=== PATIENT | male | born 1965 | race Two or more races ===

== ENCOUNTER 2017-11-24 08:42 | Inpatient (IN) | payer OTHER ==
[~2017-11-24] VITALS: Ht 170.2 cm; Wt 98.0 kg
[~2017-11-24 08:42] MED LIST: ASPI81TA27 PO; ATO40T PO; LOSA100T33 PO; METF-370 PO
[2017-11-24] MEDS ORDERED: LIDOCAINE HCL 2 %PF INJ 10ML AMP IJ ONE (09:07)
[2017-11-24] MEDS ORDERED: IODIXANOL 320MG/ML 100ML BTL IV ONE (09:07)
[2017-11-24] MEDS ORDERED: ANGIOMAX 250 MG VIAL IV ONE (09:35)
[2017-11-24] MEDS ORDERED: HEPARIN SODIUM (PORCINE) 5000 UNITS/ML 1ML VIAL ONE (09:36)
[2017-11-24] MEDS ORDERED: VERAPAMIL 2.5MG/ML INJ 2ML VIAL IV ONE (09:36)
[2017-11-24] MEDS ORDERED: SODIUM CHL 0.9% 50 ML ONE (09:36)
[2017-11-24] MEDS ORDERED: MIDAZOLAM HCL 1MG/1ML-2 ML VIAL ONE (09:36)
[2017-11-24] MEDS ORDERED: fentaNYL CITRATE 100 MCG/2 ML VL ONE (09:36)
[2017-11-24] MEDS ORDERED: ONDANSETRON HCL 4 MG/2 ML VIAL IV PRN (11:00)
[2017-11-24] MEDS ORDERED: NITROGLYCERIN 0.4 MG SL TAB SL PRN (11:00)
[2017-11-24] MEDS ORDERED: SODIUM CHLORIDE 0.9% 1,000 ML IV ONE (11:00)
[2017-11-24] MEDS ORDERED: MORPHINE SULFATE 8mg/ml INJ SDV IV PRN (11:00)
[2017-11-24 12:01] LABS: Cholesterol 190 mg/dL (< 200); HDL Cholesterol 28 mg/dL (40-59); LDL Cholesterol 128 mg/dL (< 100); Triglycerides 205 mg/dL (< 150)
[2017-11-24] MEDS: HCTZ 25 MG TAB PO SCH (12:21)
[2017-11-24] MEDS ORDERED: LOSARTAN POTASSIUM 50 MG TAB PO SCH (12:30)
[2017-11-24] MEDS ORDERED: DEXTROSE (50%) 50ML SYRG IV PRN (13:30)
[2017-11-24 15:00] VITALS: BP 160/112
[2017-11-24] MEDS ORDERED: LOSARTAN POTASSIUM 50 MG TAB PO ONE ×2 (15:45→17:45)
[2017-11-24 16:28] LABS: Basophils # (auto) 0.1 uL; Basophils % (auto) 0.8 % (0.0-2.0); Eosinophils # (auto) 0.1 uL; Eosinophils % (auto) 1.5 % (0.0-7.0); Hematocrit 47.9 % (41.0-53.0); Hemoglobin 16.2 g/dL (13.5-17.5); Lymphocytes # (auto) 2.3 uL; Lymphocytes % (auto) 29.8 % (10.0-50.0); Mean Corpuscular Hemoglobin 30.7 pg (28.0-32.0); Mean Corpuscular Hgb Conc. 33.8 g/dL (32.0-36.0); Monocytes # (auto) 0.5 uL; Monocytes % (auto) 6.9 % (0.0-12.0); Neutrophils # (auto) 4.7 uL; Nucleated Red Blood Cells % 0.2 %; Platelet Count (auto) 203 10^3/uL (140-450); Red Blood Cells 5.27 10^6/uL (4.5-5.90); Red Cell Distribution Width 13.5 % (11.8-14.3); White Blood Cell 7.7 10^3/uL (4.4-10.8)
[2017-11-24 16:39] LABS: Albumin 3.6 g/dL (3.4-5.0); BUN/Creatinine Ratio 8.1; Bilirubin, Total 0.7 mg/dL (0.2-1.0); Calcium 8.6 mg/dL (8.5-10.1); Potassium 3.7 mmol/L (3.5-5.1); Total Protein 7.6 g/dL (6.4-8.2)
[2017-11-24] MEDS: InsuLIN REG 1unit/0.01ml Soln (100units/ml) SC SCH ×2 (16:51→21:27)
[2017-11-24] MEDS: ACCU-CHEK COMFORT CURVE STRIP VI SCH ×2 (16:51→21:27)
[2017-11-24 17:35] VITALS: BP 147/98
[2017-11-24] MEDS ORDERED: SODIUM CHLORIDE 0.9% 1,000 ML IV SCH (17:45)
[2017-11-24] MEDS ORDERED: PATIENTS OWN MEDICATION (Atorvastatin Calcium (Lipitor) 1 TAB) PO SCH (18:00)
[2017-11-24] MEDS: METOPROLOL TARTRATE 25 MG TAB PO SCH (21:26)
[2017-11-24] MEDS: ATORVASTATIN 20 MG TAB PO SCH (21:27)
[2017-11-24 22:00] VITALS: BP 130/87
[2017-11-24] MEDS ORDERED: ATORVASTATIN 20 MG TAB PO SCH (22:00)
[2017-11-25 05:01] VITALS: BP 145/93
[2017-11-25] MEDS: ACCU-CHEK COMFORT CURVE STRIP VI SCH ×4 (06:28→21:33)
[2017-11-25] MEDS: InsuLIN REG 1unit/0.01ml Soln (100units/ml) SC SCH ×4 (06:28→21:32)
[2017-11-25 07:20] LABS: Urine WBC None Seen /hpf (0 - 3)
[2017-11-25 07:42] LABS: Urine Bacteria NONE SEEN /hpf (None Seen); Urine Blood Negative /uL (Negative); Urine Specific Gravity 1.027 (1.001-1.035)
[2017-11-25 09:00] VITALS: BP 130/83
[2017-11-25 09:12] LABS: BUN/Creatinine Ratio 12.4; Calcium 8.5 mg/dL (8.5-10.1); Potassium 3.7 mmol/L (3.5-5.1)
[2017-11-25] MEDS ORDERED: ASPirin-EC 81 mg tab PO SCH (10:00)
[2017-11-25] MEDS ORDERED: PATIENTS OWN MEDICATION (Losartan Potassium & Hydrochlo (Losartan Potassium/Hydroc) 1 TAB) PO SCH (10:00)
[2017-11-25] MEDS: METOPROLOL TARTRATE 25 MG TAB PO SCH ×2 (12:33→21:32)
[2017-11-25] MEDS: LOSARTAN POTASSIUM 50 MG TAB PO SCH (12:34)
[2017-11-25] MEDS: ASPirin-EC 81 mg tab PO SCH (12:34)
[2017-11-25] MEDS: HCTZ 25 MG TAB PO SCH (12:35)
[2017-11-25 13:00] VITALS: BP 147/86
[2017-11-25 17:00] VITALS: BP 126/79
[2017-11-25] MEDS: ATORVASTATIN 20 MG TAB PO SCH (21:31)
[2017-11-25 22:30] VITALS: BP 131/80
[2017-11-26] VITALS (11 sets, daily range): BP systolic 108–161; BP diastolic 55–100
[2017-11-26 05:46] LABS: Basophils # (auto) 0.1 uL; Basophils % (auto) 0.6 % (0.0-2.0); Eosinophils # (auto) 0.2 uL; Hematocrit 47.4 % (41.0-53.0); Hemoglobin 16.3 g/dL (13.5-17.5); Lymphocytes # (auto) 2.7 uL; Lymphocytes % (auto) 32.3 % (10.0-50.0); Mean Corpuscular Hemoglobin 30.9 pg (28.0-32.0); Mean Corpuscular Hgb Conc. 34.5 g/dL (32.0-36.0); Mean Corpuscular Volume 89.8 fL (80.0-100.0); Monocytes # (auto) 0.5 uL; Monocytes % (auto) 6.1 % (0.0-12.0); Neutrophils # (auto) 4.9 uL; Platelet Count (auto) 211 10^3/uL (140-450); Red Blood Cells 5.28 10^6/uL (4.5-5.90); Red Cell Distribution Width 13.3 % (11.8-14.3); White Blood Cell 8.3 10^3/uL (4.4-10.8)
[2017-11-26] MEDS: ACCU-CHEK COMFORT CURVE STRIP VI SCH ×4 (06:05→23:02)
[2017-11-26] MEDS: InsuLIN REG 1unit/0.01ml Soln (100units/ml) SC SCH ×4 (06:05→23:00)
[2017-11-26 06:22] LABS: BUN/Creatinine Ratio 10.8; Calcium 9.1 mg/dL (8.5-10.1); Potassium 4.1 mmol/L (3.5-5.1)
[2017-11-26] MEDS: LOSARTAN POTASSIUM 50 MG TAB PO SCH (09:46)
[2017-11-26] MEDS: ASPirin-EC 81 mg tab PO SCH (09:47)
[2017-11-26] MEDS: METOPROLOL TARTRATE 25 MG TAB PO SCH ×2 (09:47→23:01)
[2017-11-26] MEDS ORDERED: SODIUM CHLORIDE 0.9% 1,000 ML IV SCH (10:30)
[2017-11-26 14:22] LABS: INR 1.02 (0.9-1.15); Partial Thromboplastin Time 26.6 sec (22.64-33.71); Prothrombin Time 11.1 sec (9.37-12.3)
[2017-11-26] MEDS ORDERED: ISOSORBIDE MONONITRATE 60 MG TAB PO ONE (15:45)
[2017-11-26] MEDS ORDERED: ASCORBIC ACID 500 MG TAB PO ONE (22:00)
[2017-11-26] MEDS: ATORVASTATIN 20 MG TAB PO SCH (23:00)
[2017-11-26] MEDS: hydrALAZINE HCL 10 MG TAB PO SCH (23:02)
[2017-11-27] VITALS (75 sets, daily range): BP systolic 125–156; BP diastolic 71–102
[2017-11-27] MEDS ORDERED: CHLORHEXIDINE 4% TOPICAL soln 4or8OZ TOP ONE (01:30)
[2017-11-27 04:01] LABS: Albumin 3.6 g/dL (3.4-5.0); BUN/Creatinine Ratio 12.5; Calcium 8.6 mg/dL (8.5-10.1); Potassium 3.9 mmol/L (3.5-5.1)
[2017-11-27 04:04] LABS: Bilirubin, Total 0.6 mg/dL (0.2-1.0); Total Protein 7.4 g/dL (6.4-8.2)
[2017-11-27] MEDS ORDERED: CHLORHEXIDINE 0.12% ORAL rinse 473ML MT ONE (06:00)
[2017-11-27] MEDS: InsuLIN REG 1unit/0.01ml Soln (100units/ml) SC SCH ×3 (06:20→21:49)
[2017-11-27] MEDS: ACCU-CHEK COMFORT CURVE STRIP VI SCH ×3 (06:20→21:50)
[2017-11-27] MEDS ORDERED: VANCOMYCIN 1GM/250ML 250 ML IV ONE (06:30)
[2017-11-27] MEDS ORDERED: AZTREONAM 1GM INJ 1 GM in D5W 5% 50 ML IV ONE (06:30)
[2017-11-27] MEDS: hydrALAZINE HCL 10 MG TAB PO SCH ×3 (07:08→21:43)
[2017-11-27] MEDS ORDERED: ACCU-CHEK COMFORT CURVE STRIP VI ONE (07:30)
[2017-11-27] MEDS ORDERED: PHENYLEPHRINE INJ 20 MG in SODIUM CHL 0.9% 250 ML IV ONE (07:30)
[2017-11-27] MEDS ORDERED: InsuLIN R (HUMAN) 100 UNITS in SODIUM CHL 0.9% 99 ML IV ONE (07:30)
[2017-11-27] MEDS ORDERED: TRANEXAMIC ACID 1,000 MG in SODIUM CHL 0.9% 100 ML IV ONE (07:30)
[2017-11-27] MEDS ORDERED: TRANEXAMIC ACID 1,000 mg/10ml INJ VIAL IV ONE (07:30)
[2017-11-27] MEDS ORDERED: HEPARIN 30000 UNITS in SODIUM CHLORIDE 0.9% 1000 ML IV ONE (07:30)
[2017-11-27] MEDS ORDERED: VASOPRESSIN 50 UNITS in SODIUM CHL 0.9% 247.5 ML IV ONE (07:30)
[2017-11-27] MEDS ORDERED: EPINEPHrine HCL 4 MG in D5W 5% 250 ML IV ONE (07:30)
[2017-11-27] MEDS ORDERED: NOREPINEPHRINE 16 MG/500ML KIT 500 ML IV ONE (07:30)
[2017-11-27] MEDS: ASPirin-EC 81 mg tab PO SCH (09:57)
[2017-11-27] MEDS: METOPROLOL TARTRATE 25 MG TAB PO SCH ×2 (09:58→21:43)
[2017-11-27] MEDS: ATORVASTATIN 20 MG TAB PO SCH (21:42)
[2017-11-28] VITALS (52 sets, daily range): BP systolic 92–152; BP diastolic 42–102
[2017-11-28] MEDS: hydrALAZINE HCL 10 MG TAB PO SCH ×3 (06:00→22:45)
[2017-11-28] MEDS: ACCU-CHEK COMFORT CURVE STRIP VI SCH ×4 (07:00→22:00)
[2017-11-28] MEDS: InsuLIN REG 1unit/0.01ml Soln (100units/ml) SC SCH ×4 (07:00→22:45)
[2017-11-28] MEDS: ASPirin-EC 81 mg tab PO SCH (09:41)
[2017-11-28] MEDS: METOPROLOL TARTRATE 25 MG TAB PO SCH ×2 (09:42→22:00)
[2017-11-28] MEDS ORDERED: ACCU-CHEK COMFORT CURVE STRIP VI ONE (10:30)
[2017-11-28] MEDS ORDERED: ASCORBIC ACID 500 MG TAB PO ONE ×2 (22:00)
[2017-11-28] MEDS: ATORVASTATIN 20 MG TAB PO SCH (22:00)
[2017-11-29] VITALS (40 sets, daily range): BP systolic 23–147; BP diastolic 11–110
[2017-11-29] MEDS ORDERED: CHLORHEXIDINE 4% TOPICAL soln 4or8OZ TOP ONE ×2 (02:00)
[2017-11-29] MEDS ORDERED: CHLORHEXIDINE 4% TOPICAL soln 237ML TOP ONE (03:20)
[2017-11-29 03:52] LABS: Basophils # (auto) 0.1 uL; Basophils % (auto) 0.9 % (0.0-2.0); Eosinophils # (auto) 0.2 uL; Eosinophils % (auto) 2.2 % (0.0-7.0); Hematocrit 49.2 % (41.0-53.0); Hemoglobin 16.9 g/dL (13.5-17.5); Lymphocytes # (auto) 2.4 uL; Lymphocytes % (auto) 21.5 % (10.0-50.0); Mean Corpuscular Hemoglobin 30.6 pg (28.0-32.0); Mean Corpuscular Hgb Conc. 34.3 g/dL (32.0-36.0); Mean Corpuscular Volume 89.1 fL (80.0-100.0); Monocytes # (auto) 0.8 uL; Monocytes % (auto) 7.2 % (0.0-12.0); Neutrophils # (auto) 7.8 uL; Neutrophils % (auto) 68.2 % (37.0-80.0); Platelet Count (auto) 241 10^3/uL (140-450); Red Blood Cells 5.52 10^6/uL (4.5-5.90); Red Cell Distribution Width 13.3 % (11.8-14.3); White Blood Cell 11.4 10^3/uL (4.4-10.8)
[2017-11-29 04:08] LABS: BUN/Creatinine Ratio 13.4
[2017-11-29] MEDS ORDERED: PAPAVERINE HCL 60 MG/2 ML 2ML VIAL ONE (05:40)
[2017-11-29] MEDS ORDERED: HEPARIN 1,000 UNITS/ml 1ML VIAL ONE (05:41)
[2017-11-29] MEDS ORDERED: BACITRACIN INJ 50000 UNIT VIAL ONE (05:41)
[2017-11-29] MEDS: hydrALAZINE HCL 10 MG TAB PO SCH ×3 (06:00→22:00)
[2017-11-29] MEDS ORDERED: ACCU-CHEK COMFORT CURVE STRIP VI ONE (06:00)
[2017-11-29] MEDS ORDERED: CHLORHEXIDINE 0.12% ORAL rinse 473ML MT ONE ×2 (06:00→10:30)
[2017-11-29] MEDS ORDERED: fentaNYL CITRATE 10 ML ONE (06:34)
[2017-11-29] MEDS ORDERED: MIDAZOLAM HCL 1MG/1ML-2 ML VIAL ONE (06:34)
[2017-11-29] MEDS ORDERED: ROCURONIUM 10MG/ML 10ML VIAL IV ONE ×2 (06:36→09:43)
[2017-11-29] MEDS ORDERED: NITROGLYCERIN 50MG/250ML 250 ML IV ONE (06:36)
[2017-11-29] MEDS: ACCU-CHEK COMFORT CURVE STRIP VI SCH ×10 (06:46→23:00)
[2017-11-29] MEDS: InsuLIN REG 1unit/0.01ml Soln (100units/ml) SC SCH ×2 (06:46→09:16)
[2017-11-29] MEDS ORDERED: AZTREONAM 1GM INJ 1 GM in D5W 5% 50 ML IV ONE (07:00)
[2017-11-29] MEDS ORDERED: VANCOMYCIN 1GM/250ML 250 ML IV ONE (07:00)
[2017-11-29] MEDS ORDERED: SUCCINYLCHOLINE CHLORIDE 20 MG/ML 10ML VIAL IV ONE (07:20)
[2017-11-29] MEDS ORDERED: ALBUMIN 25% 300 ML IV ONE (07:56)
[2017-11-29] MEDS ORDERED: PLASMA-LYTE A pH7.4 4,000 ML INJ ONE (07:56)
[2017-11-29] MEDS ORDERED: TRANEXAMIC ACID 1,000 MG in SODIUM CHL 0.9% 100 ML IV ONE (08:00)
[2017-11-29] MEDS ORDERED: NOREPINEPHRINE 16 MG/500ML KIT 500 ML IV ONE (08:00)
[2017-11-29] MEDS ORDERED: InsuLIN R (HUMAN) 100 UNITS in SODIUM CHL 0.9% 99 ML IV ONE (08:00)
[2017-11-29] MEDS ORDERED: TRANEXAMIC ACID 1,000 mg/10ml INJ VIAL IV ONE ×2 (08:00→18:34)
[2017-11-29] MEDS ORDERED: EPINEPHrine HCL 4 MG in D5W 5% 250 ML IV ONE (08:00)
[2017-11-29] MEDS ORDERED: PHENYLEPHRINE INJ 20 MG in SODIUM CHL 0.9% 250 ML IV ONE (08:00)
[2017-11-29] MEDS ORDERED: VASOPRESSIN 50 UNITS in SODIUM CHL 0.9% 247.5 ML IV ONE (08:00)
[2017-11-29] MEDS ORDERED: HEPARIN 30000 UNITS in SODIUM CHLORIDE 0.9% 1000 ML IV ONE (08:00)
[2017-11-29] MEDS ORDERED: PROPOFOL 10 MG/ML 20 ML IV ONE (08:07)
[2017-11-29] MEDS ORDERED: ceFAZolin 1GM VL ONE (08:08)
[2017-11-29] MEDS: METOPROLOL TARTRATE 25 MG TAB PO SCH ×2 (09:16→22:00)
[2017-11-29] MEDS: ASPirin-EC 81 mg tab PO SCH (09:16)
[2017-11-29] MEDS ORDERED: fentaNYL CITRATE 100 MCG/2 ML VL ONE ×3 (10:49→14:11)
[2017-11-29] MEDS ORDERED: PROTAMINE SULFATE 10 MG/ML 5ML VIAL IV ONE (13:37)
[2017-11-29] MEDS ORDERED: PROTAMINE SULFATE 250 MG/25 ML VL IV ONE (13:37)
[2017-11-29] MEDS ORDERED: PROPOFOL 100 ML IV ONE (14:16)
[2017-11-29] MEDS ORDERED: INSULIN DRIP 100 UNIT/100ML 100 ML IV SCH (15:02)
[2017-11-29] MEDS ORDERED: NITROGLYCERIN 50MG/250ML 250 ML IV SCH (15:03)
[2017-11-29] MEDS ORDERED: SODIUM CHLORIDE 0.9% 1,000 ML IV SCH (15:03)
[2017-11-29 15:13] LABS: Basophils # (auto) 0.1 uL; Basophils % (auto) 0.3 % (0.0-2.0); Eosinophils # (auto) 0 uL; Eosinophils % (auto) 0.3 % (0.0-7.0); Hematocrit 36.7 % (41.0-53.0); Hemoglobin 12.3 g/dL (13.5-17.5); Lymphocytes # (auto) 1.4 uL; Lymphocytes % (auto) 7.7 % (10.0-50.0); Mean Corpuscular Hemoglobin 30.3 pg (28.0-32.0); Mean Corpuscular Hgb Conc. 33.5 g/dL (32.0-36.0); Mean Corpuscular Volume 90.5 fL (80.0-100.0); Monocytes # (auto) 0.8 uL; Monocytes % (auto) 4.3 % (0.0-12.0); Neutrophils % (auto) 87.4 % (37.0-80.0); Platelet Count (auto) 119 10^3/uL (140-450); Red Blood Cells 4.06 10^6/uL (4.5-5.90); Red Cell Distribution Width 13.3 % (11.8-14.3); White Blood Cell 18.2 10^3/uL (4.4-10.8)
[2017-11-29] MEDS ORDERED: FUROSEMIDE 20 MG/2 ML VIAL IV PRN (15:15)
[2017-11-29] MEDS ORDERED: ONDANSETRON HCL 4 MG/2 ML VIAL IV PRN (15:15)
[2017-11-29] MEDS ORDERED: ALBUMIN 5% 250 ML IV PRN (15:15)
[2017-11-29] MEDS ORDERED: SODIUM BICARBONATE 8.4% INJ 50ML SYRINGE IV PRN (15:15)
[2017-11-29] MEDS ORDERED: METOCLOPRAMIDE HCL 5MG/ml INJ 2ml VIAL IV PRN (15:15)
[2017-11-29] MEDS ORDERED: AZTREONAM 1GM INJ 1 GM in D5W 5% 50 ML IV SCH (15:15)
[2017-11-29] MEDS ORDERED: ALBUMIN 25% 250 ML IV PRN (15:15)
[2017-11-29] MEDS ORDERED: DEXTROSE (50%) 50ML SYRG IV PRN (15:15)
[2017-11-29] MEDS ORDERED: MAGNESIUM SULFATE 1GM/100ML 100 ML IV PRN (15:15)
[2017-11-29] MEDS ORDERED: MORPHINE SULFATE 8mg/ml INJ SDV IV PRN ×2 (15:15)
[2017-11-29] MEDS ORDERED: AMIODARONE HCL 150 MG in D5W 5% 100 ML IV ONE (15:15)
[2017-11-29] MEDS ORDERED: VANCOMYCIN 1GM/250ML 250 ML IV SCH (15:15)
[2017-11-29] MEDS ORDERED: PROPRANOLOL HCL 1 MG/ML VIAL IV PRN (15:15)
[2017-11-29 15:25] LABS: INR 1.17 (0.9-1.15); Partial Thromboplastin Time 33.2 sec (22.64-33.71); Prothrombin Time 12.8 sec (9.37-12.3)
[2017-11-29 15:28] LABS: Albumin 3.3 g/dL (3.4-5.0); BUN/Creatinine Ratio 11.1; Calcium 7.1 mg/dL (8.5-10.1); Magnesium 3.7 mg/dL (1.6-2.6); Potassium 4.3 mmol/L (3.5-5.1)
[2017-11-29] MEDS ORDERED: AMIODARONE HCL 900 MG in DEXTROSE 500 ML IV SCH (15:30)
[2017-11-29 15:31] LABS: Bilirubin, Total 0.9 mg/dL (0.2-1.0); Total Protein 5.3 g/dL (6.4-8.2)
[2017-11-29] MEDS ORDERED: SODIUM BICARBONATE 8.4% INJ 50ML SYRINGE ONE (15:52)
[2017-11-29] MEDS ORDERED: SODIUM BICARBONATE 8.4 % INJ 50ML VIAL IV ONE (16:00)
[2017-11-29 16:01] LABS: Basophils # (auto) 0 uL; Basophils % (auto) 0.2 % (0.0-2.0); Eosinophils # (auto) 0 uL; Eosinophils % (auto) 0.1 % (0.0-7.0); Hematocrit 39.9 % (41.0-53.0); Hemoglobin 13.4 g/dL (13.5-17.5); Lymphocytes # (auto) 1.3 uL; Lymphocytes % (auto) 7.2 % (10.0-50.0); Mean Corpuscular Hemoglobin 30.3 pg (28.0-32.0); Mean Corpuscular Hgb Conc. 33.5 g/dL (32.0-36.0); Mean Corpuscular Volume 90.4 fL (80.0-100.0); Monocytes % (auto) 5.5 % (0.0-12.0); Neutrophils # (auto) 15.4 uL; Platelet Count (auto) 140 10^3/uL (140-450); Red Blood Cells 4.42 10^6/uL (4.5-5.90); Red Cell Distribution Width 13.4 % (11.8-14.3); White Blood Cell 17.7 10^3/uL (4.4-10.8)
[2017-11-29] MEDS: MORPHINE SULFATE 8mg/ml INJ SDV IV PRN (16:02)
[2017-11-29] MEDS: PROPOFOL 100 ML IV SCH (16:11)
[2017-11-29] MEDS: NOREPINEPHRINE 16 MG/500ML KIT 500 ML IV SCH (16:11)
[2017-11-29 16:20] LABS: Albumin 3.6 g/dL (3.4-5.0); BUN/Creatinine Ratio 9.2; Bilirubin, Total 1.4 mg/dL (0.2-1.0); Calcium 7.3 mg/dL (8.5-10.1); Magnesium 3.4 mg/dL (1.6-2.6); Phosphorus 2.3 mg/dL (2.5-4.90); Potassium 4.5 mmol/L (3.5-5.1); Total Protein 6.1 g/dL (6.4-8.2)
[2017-11-29 16:22] LABS: INR 1.09 (0.9-1.15); Partial Thromboplastin Time 28.8 sec (22.64-33.71); Prothrombin Time 11.9 sec (9.37-12.3)
[2017-11-29] MEDS: NICARDIPINE 25MG/250ML BAG KIT 250 ML IV SCH ×2 (16:38→20:03)
[2017-11-29] MEDS: SODIUM CHLORIDE 0.9% 500 ML IV SCH (16:41)
[2017-11-29] MEDS: DEXMEDETOMIDINE HCL 400 MCG in D5W 5% 96 ML IV SCH (16:41)
[2017-11-29] MEDS: SOD CHL 0.45% 1,000 ML IV SCH (17:03)
[2017-11-29] MEDS: CALCIUM GLUC 4.65meq/50ml D5AE 50 ML IV PRN ×2 (17:04→18:20)
[2017-11-29] MEDS: IPRATROPIUM BROM 0.5 MG/2.5ML INH SOL NEB SCH ×2 (18:07→22:10)
[2017-11-29] MEDS ORDERED: CALCIUM CHLOR(10%) 100MG/ML 10ML SYRINGE IV ONE (18:34)
[2017-11-29] MEDS ORDERED: ADENOSINE 6 MG/2 ML INJ IV ONE (18:34)
[2017-11-29 20:02] LABS: Potassium 4.3 mmol/L (3.5-5.1)
[2017-11-29 20:03] LABS: Basophils # (auto) 0 uL; Basophils % (auto) 0.1 % (0.0-2.0); Eosinophils # (auto) 0 uL; Hematocrit 36.3 % (41.0-53.0); Hemoglobin 12.1 g/dL (13.5-17.5); Lymphocytes # (auto) 0.9 uL; Lymphocytes % (auto) 7.6 % (10.0-50.0); Mean Corpuscular Hemoglobin 30.3 pg (28.0-32.0); Mean Corpuscular Hgb Conc. 33.4 g/dL (32.0-36.0); Monocytes # (auto) 0.5 uL; Monocytes % (auto) 3.8 % (0.0-12.0); Neutrophils # (auto) 10.5 uL; Neutrophils % (auto) 88.5 % (37.0-80.0); Nucleated Red Blood Cells % 0.1 %; Platelet Count (auto) 118 10^3/uL (140-450); Red Blood Cells 3.99 10^6/uL (4.5-5.90); Red Cell Distribution Width 13.4 % (11.8-14.3); White Blood Cell 11.9 10^3/uL (4.4-10.8)
[2017-11-29] MEDS: AMIODARONE HCL 900 MG in DEXTROSE 500 ML IV SCH (21:30)
[2017-11-29] MEDS: ACETAMINOPHEN 500 MG TAB PO PRN (21:35)
[2017-11-29] MEDS: ATORVASTATIN 20 MG TAB PO SCH (22:00)
[2017-11-29] MEDS: CHLORHEXIDINE 0.12% ORAL rinse 473ML MT SCH (22:08)
[2017-11-29] MEDS: ACETYLCYSTEINE 10 %(100MG/ML) SOL 4ML NEB SCH (22:11)
[2017-11-30] VITALS (83 sets, daily range): BP systolic 22–148; BP diastolic 8–89
[2017-11-30 00:14] LABS: BUN/Creatinine Ratio 12.4; Calcium 7.7 mg/dL (8.5-10.1); Potassium 4.2 mmol/L (3.5-5.1)
[2017-11-30] MEDS: CALCIUM GLUC 4.65meq/50ml D5AE 50 ML IV PRN ×4 (00:30→15:18)
[2017-11-30] MEDS: ACCU-CHEK COMFORT CURVE STRIP VI SCH ×18 (01:00→20:00)
[2017-11-30] MEDS: NICARDIPINE 25MG/250ML BAG KIT 250 ML IV SCH ×5 (01:03→21:03)
[2017-11-30] MEDS: AZTREONAM 1GM INJ 1 GM in D5W 5% 50 ML IV SCH ×3 (01:10→16:26)
[2017-11-30] MEDS: PROPOFOL 100 ML IV SCH ×2 (03:00→15:03)
[2017-11-30] MEDS: DEXMEDETOMIDINE HCL 400 MCG in D5W 5% 96 ML IV SCH ×2 (04:00→10:17)
[2017-11-30 04:44] LABS: Basophils # (auto) 0 uL; Basophils % (auto) 0.3 % (0.0-2.0); Eosinophils # (auto) 0 uL; Hematocrit 33.5 % (41.0-53.0); Hemoglobin 11.3 g/dL (13.5-17.5); Lymphocytes # (auto) 1.1 uL; Lymphocytes % (auto) 7.9 % (10.0-50.0); Mean Corpuscular Hemoglobin 30.7 pg (28.0-32.0); Mean Corpuscular Hgb Conc. 33.7 g/dL (32.0-36.0); Mean Corpuscular Volume 91.3 fL (80.0-100.0); Monocytes # (auto) 0.8 uL; Monocytes % (auto) 5.7 % (0.0-12.0); Neutrophils % (auto) 86.1 % (37.0-80.0); Platelet Count (auto) 121 10^3/uL (140-450); Red Blood Cells 3.67 10^6/uL (4.5-5.90); Red Cell Distribution Width 13.8 % (11.8-14.3)
[2017-11-30 05:09] LABS: BUN/Creatinine Ratio 11.8; Calcium 7.9 mg/dL (8.5-10.1); Magnesium 2.7 mg/dL (1.6-2.6); Phosphorus 3.3 mg/dL (2.5-4.90)
[2017-11-30] MEDS: SOD CHL 0.45% 1,000 ML IV SCH ×2 (05:30→09:25)
[2017-11-30] MEDS: POTASSIUM CHL 20MEQ/100ML 100 ML IV PRN ×7 (05:50→21:45)
[2017-11-30] MEDS: VANCOMYCIN 1GM/250ML 250 ML IV SCH ×2 (05:55→17:16)
[2017-11-30] MEDS: hydrALAZINE HCL 10 MG TAB PO SCH ×3 (06:00→22:00)
[2017-11-30] MEDS: IPRATROPIUM BROM 0.5 MG/2.5ML INH SOL NEB SCH ×4 (06:59→18:24)
[2017-11-30] MEDS: ACETYLCYSTEINE 10 %(100MG/ML) SOL 4ML NEB SCH ×3 (06:59→22:16)
[2017-11-30] MEDS: MORPHINE SULFATE 8mg/ml INJ SDV IV PRN (07:27)
[2017-11-30] MEDS: PANTOPRAZOLE 40 MG/10 ML VIAL IV SCH (09:33)
[2017-11-30] MEDS: CHLORHEXIDINE 0.12% ORAL rinse 473ML MT SCH ×2 (09:33→22:00)
[2017-11-30] MEDS ORDERED: NITROGLYCERIN 0.4MG/HR TOPICAL PATCH TD ONE (11:45)
[2017-11-30] MEDS: METOPROLOL TARTRATE 25 MG TAB PO SCH ×2 (12:04→22:30)
[2017-11-30] MEDS: ASPirin-EC 81 mg tab PO SCH (12:04)
[2017-11-30] MEDS: SODIUM FERR GLUC 62.5MG/5ML 125 MG in SODIUM CHL 0.9% 100 ML IV SCH (12:04)
[2017-11-30 14:04] LABS: Basophils # (auto) 0.1 uL; Basophils % (auto) 0.5 % (0.0-2.0); Eosinophils # (auto) 0 uL; Hematocrit 31.3 % (41.0-53.0); Hemoglobin 10.4 g/dL (13.5-17.5); Lymphocytes # (auto) 2.1 uL; Lymphocytes % (auto) 12.2 % (10.0-50.0); Mean Corpuscular Hemoglobin 30.1 pg (28.0-32.0); Mean Corpuscular Hgb Conc. 33.1 g/dL (32.0-36.0); Mean Corpuscular Volume 91.1 fL (80.0-100.0); Monocytes # (auto) 1.5 uL; Monocytes % (auto) 8.8 % (0.0-12.0); Neutrophils # (auto) 13.4 uL; Neutrophils % (auto) 78.5 % (37.0-80.0); Platelet Count (auto) 124 10^3/uL (140-450); Red Blood Cells 3.44 10^6/uL (4.5-5.90); Red Cell Distribution Width 13.5 % (11.8-14.3); White Blood Cell 17.1 10^3/uL (4.4-10.8)
[2017-11-30] MEDS: HYDROcodone-ACET 10/325MG TAB PO PRN ×2 (14:24→23:20)
[2017-11-30 14:46] LABS: Calcium 8.2 mg/dL (8.5-10.1); Magnesium 2.6 mg/dL (1.6-2.6); Phosphorus 3.4 mg/dL (2.5-4.90); Potassium 4.3 mmol/L (3.5-5.1)
[2017-11-30] MEDS: SODIUM CHLORIDE 0.9% 500 ML IV SCH (15:03)
[2017-11-30] MEDS: NOREPINEPHRINE 16 MG/500ML KIT 500 ML IV SCH (15:03)
[2017-11-30] MEDS ORDERED: DEXTROSE (50%) 50ML SYRG IV PRN (15:15)
[2017-11-30] MEDS: InsuLIN REG 1unit/0.01ml Soln (100units/ml) SC SCH ×2 (16:03→20:00)
[2017-11-30] MEDS: ACETAMINOPHEN 500 MG TAB PO PRN (21:00)
[2017-11-30] MEDS: AMIODARONE HCL 900 MG in DEXTROSE 500 ML IV SCH (21:30)
[2017-11-30] MEDS: ATORVASTATIN 20 MG TAB PO SCH (22:00)
[2017-11-30] MEDS: ZOLPIDEM TARTRATE 5 MG TAB PO PRN (22:30)
[2017-12-01] VITALS (51 sets, daily range): BP systolic 85–133; BP diastolic 45–100
[2017-12-01] MEDS: InsuLIN REG 1unit/0.01ml Soln (100units/ml) SC SCH ×7 (00:30→23:39)
[2017-12-01] MEDS: AZTREONAM 1GM INJ 1 GM in D5W 5% 50 ML IV SCH ×2 (01:00→08:03)
[2017-12-01] MEDS: IPRATROPIUM BROM 0.5 MG/2.5ML INH SOL NEB SCH ×6 (02:00→22:32)
[2017-12-01] MEDS: NICARDIPINE 25MG/250ML BAG KIT 250 ML IV SCH ×5 (02:03→22:03)
[2017-12-01] MEDS: ACCU-CHEK COMFORT CURVE STRIP VI SCH ×8 (04:30→23:38)
[2017-12-01 05:23] LABS: Basophils # (auto) 0 uL; Basophils % (auto) 0.3 % (0.0-2.0); Eosinophils # (auto) 0 uL; Eosinophils % (auto) 0.1 % (0.0-7.0); Hematocrit 30.3 % (41.0-53.0); Hemoglobin 10.3 g/dL (13.5-17.5); Lymphocytes # (auto) 2.7 uL; Lymphocytes % (auto) 17.9 % (10.0-50.0); Mean Corpuscular Hgb Conc. 33.9 g/dL (32.0-36.0); Mean Corpuscular Volume 91.5 fL (80.0-100.0); Monocytes # (auto) 1.1 uL; Monocytes % (auto) 7.3 % (0.0-12.0); Neutrophils # (auto) 11.4 uL; Neutrophils % (auto) 74.4 % (37.0-80.0); Platelet Count (auto) 126 10^3/uL (140-450); Red Blood Cells 3.31 10^6/uL (4.5-5.90); Red Cell Distribution Width 13.6 % (11.8-14.3); White Blood Cell 15.3 10^3/uL (4.4-10.8)
[2017-12-01] MEDS: VANCOMYCIN 1GM/250ML 250 ML IV SCH (05:30)
[2017-12-01 05:35] LABS: BUN/Creatinine Ratio 12.1; Magnesium 2.3 mg/dL (1.6-2.6); Potassium 3.9 mmol/L (3.5-5.1)
[2017-12-01] MEDS: POTASSIUM CHL 20MEQ/100ML 100 ML IV PRN ×2 (06:10→07:47)
[2017-12-01] MEDS: hydrALAZINE HCL 10 MG TAB PO SCH (06:15)
[2017-12-01] MEDS: ACETAMINOPHEN 500 MG TAB PO PRN (06:30)
[2017-12-01] MEDS: SOD CHL 0.45% 1,000 ML IV SCH (06:45)
[2017-12-01] MEDS: ACETYLCYSTEINE 10 %(100MG/ML) SOL 4ML NEB SCH ×3 (06:52→18:51)
[2017-12-01] MEDS ORDERED: MORPHINE SULFATE 8mg/ml INJ SDV IV PRN ×3 (08:30→10:45)
[2017-12-01] MEDS ORDERED: HYDROcodone-ACET 10/325MG TAB PO PRN (08:30)
[2017-12-01] MEDS: DEXMEDETOMIDINE HCL 400 MCG in D5W 5% 96 ML IV SCH (08:43)
[2017-12-01] MEDS: CALCIUM GLUC 4.65meq/50ml D5AE 50 ML IV PRN (09:00)
[2017-12-01] MEDS: PANTOPRAZOLE 40 MG/10 ML VIAL IV SCH (10:04)
[2017-12-01] MEDS: NITROGLYCERIN 0.4MG/HR TOPICAL PATCH TD SCH (10:05)
[2017-12-01] MEDS: FUROSEMIDE 20 MG TAB PO SCH ×2 (10:06→18:02)
[2017-12-01] MEDS: POTASSIUM CHL 20 Meq TABLET PO SCH ×3 (10:06→22:00)
[2017-12-01] MEDS: CHLORHEXIDINE 0.12% ORAL rinse 473ML MT SCH ×2 (10:07→22:00)
[2017-12-01] MEDS: ASPirin-EC 81 mg tab PO SCH (10:07)
[2017-12-01] MEDS ORDERED: hydrALAZINE HCL 20 MG/ML VL IV PRN ×2 (10:45)
[2017-12-01] MEDS ORDERED: SENNA 8.6 MG TAB PO PRN (10:45)
[2017-12-01] MEDS ORDERED: glipiZIDE 5 MG TAB PO ONE (10:45)
[2017-12-01] MEDS ORDERED: HYDROcodone-ACET 5/325MG TAB PO PRN ×2 (10:45→13:30)
[2017-12-01] MEDS ORDERED: POTASSIUM CHL 20MEQ/100ML 100 ML IV PRN (10:45)
[2017-12-01] MEDS ORDERED: SODIUM CHLORIDE 0.9% 1,000 ML IV SCH (11:00)
[2017-12-01] MEDS ORDERED: DEXTROSE (50%) 50ML SYRG IV PRN (11:00)
[2017-12-01] MEDS ORDERED: METOCLOPRAMIDE HCL 5MG/ml INJ 2ml VIAL IV ONE (11:00)
[2017-12-01] MEDS: Boost Glucose Control 8 Ounces PO SCH ×2 (12:00→18:01)
[2017-12-01] MEDS: SODIUM FERR GLUC 62.5MG/5ML 125 MG in SODIUM CHL 0.9% 100 ML IV SCH (12:05)
[2017-12-01] MEDS ORDERED: fentaNYL CITRATE 100 MCG/2 ML VL IV ONE (13:15)
[2017-12-01] MEDS ORDERED: METOPROLOL TARTRATE 25 MG TAB PO ONE (13:15)
[2017-12-01] MEDS: SODIUM CHLORIDE 0.9% 500 ML IV SCH (14:41)
[2017-12-01] MEDS: ACETAMINOPHEN IV 1000 MG/100ML (10MG/ML) IV SCH ×2 (18:02→23:30)
[2017-12-01] MEDS: POTASSIUM CHL 20 Meq TABLET PO PRN (18:56)
[2017-12-01] MEDS: HYDROcodone-ACET 10/325MG TAB PO PRN (19:49)
[2017-12-01] MEDS: AMIODARONE HCL 900 MG in DEXTROSE 500 ML IV SCH (21:30)
[2017-12-01] MEDS: DOCUSATE SOD 100 MG CAP PO SCH (22:00)
[2017-12-01] MEDS ORDERED: METOPROLOL TARTRATE 25 MG TAB PO SCH (22:00)
[2017-12-01] MEDS: ATORVASTATIN 20 MG TAB PO SCH (22:00)
[2017-12-01] MEDS: ASCORBIC ACID 500 MG TAB PO SCH (22:00)
[2017-12-01] MEDS: KETOROLAC TROMETH 30 MG/ML 1ML VIAL IV PRN (23:39)
[2017-12-01] MEDS: ZOLPIDEM TARTRATE 5 MG TAB PO PRN (23:39)
[2017-12-02] VITALS (66 sets, daily range): BP systolic 82–132; BP diastolic 36–71
[2017-12-02] MEDS: NICARDIPINE 25MG/250ML BAG KIT 250 ML IV SCH ×5 (03:03→23:03)
[2017-12-02] MEDS: InsuLIN REG 1unit/0.01ml Soln (100units/ml) SC SCH ×5 (04:00→22:09)
[2017-12-02] MEDS: HYDROcodone-ACET 10/325MG TAB PO PRN ×2 (06:00→20:01)
[2017-12-02] MEDS: ACCU-CHEK COMFORT CURVE STRIP VI SCH ×5 (06:00→22:09)
[2017-12-02] MEDS: FUROSEMIDE 20 MG TAB PO SCH (06:03)
[2017-12-02] MEDS: ACETAMINOPHEN IV 1000 MG/100ML (10MG/ML) IV SCH ×2 (06:03→12:05)
[2017-12-02] MEDS: IPRATROPIUM BROM 0.5 MG/2.5ML INH SOL NEB SCH ×5 (06:08→22:32)
[2017-12-02] MEDS: ACETYLCYSTEINE 10 %(100MG/ML) SOL 4ML NEB SCH ×3 (06:08→22:31)
[2017-12-02] MEDS: POTASSIUM CHL 20 Meq TABLET PO SCH (06:11)
[2017-12-02] MEDS ORDERED: glipiZIDE 5 MG TAB PO SCH (07:00)
[2017-12-02 07:55] LABS: Basophils # (auto) 0.1 uL; Basophils % (auto) 0.6 % (0.0-2.0); Eosinophils # (auto) 0 uL; Eosinophils % (auto) 0.4 % (0.0-7.0); Hematocrit 29.1 % (41.0-53.0); Hemoglobin 9.7 g/dL (13.5-17.5); Lymphocytes % (auto) 15.9 % (10.0-50.0); Mean Corpuscular Hemoglobin 30.6 pg (28.0-32.0); Mean Corpuscular Hgb Conc. 33.5 g/dL (32.0-36.0); Mean Corpuscular Volume 91.5 fL (80.0-100.0); Monocytes % (auto) 7.7 % (0.0-12.0); Neutrophils # (auto) 9.7 uL; Neutrophils % (auto) 75.4 % (37.0-80.0); Nucleated Red Blood Cells % 0.2 %; Platelet Count (auto) 139 10^3/uL (140-450); Red Blood Cells 3.17 10^6/uL (4.5-5.90); Red Cell Distribution Width 13.4 % (11.8-14.3); White Blood Cell 12.9 10^3/uL (4.4-10.8)
[2017-12-02 08:08] LABS: Calcium 7.8 mg/dL (8.5-10.1)
[2017-12-02 08:12] LABS: Albumin 3.1 g/dL (3.4-5.0); BUN/Creatinine Ratio 15.6; Magnesium 2.3 mg/dL (1.6-2.6)
[2017-12-02 08:14] LABS: Bilirubin, Total 1.2 mg/dL (0.2-1.0); Total Protein 6.6 g/dL (6.4-8.2)
[2017-12-02] MEDS ORDERED: METOCLOPRAMIDE HCL 5MG/ml INJ 2ml VIAL IV ONE (08:45)
[2017-12-02] MEDS ORDERED: ALBUMIN 25% 100 ML IV ONE (08:45)
[2017-12-02] MEDS ORDERED: CALCIUM GLUC 4.65meq/50ml D5AE 50 ML IV PRN (09:00)
[2017-12-02] MEDS: metFORMIN HYDROCHLORIDE 500 MG TAB PO SCH (11:11)
[2017-12-02] MEDS: Boost Glucose Control 8 Ounces PO SCH ×2 (11:11→12:00)
[2017-12-02] MEDS: ASCORBIC ACID 500 MG TAB PO SCH ×2 (11:15→22:09)
[2017-12-02] MEDS: PANTOPRAZOLE 40 MG TAB PO SCH (11:15)
[2017-12-02] MEDS ORDERED: METOPROLOL TARTRATE 25 MG TAB PO ONE ×2 (11:15→16:00)
[2017-12-02] MEDS: NITROGLYCERIN 0.4MG/HR TOPICAL PATCH TD SCH (11:15)
[2017-12-02] MEDS: POTASSIUM CHL 20 Meq TABLET PO PRN (11:15)
[2017-12-02] MEDS ORDERED: DEXTROSE (50%) 50ML SYRG IV PRN (11:15)
[2017-12-02] MEDS: DOCUSATE SOD 100 MG CAP PO SCH ×2 (11:15→22:08)
[2017-12-02] MEDS: ASPirin-EC 81 mg tab PO SCH (11:15)
[2017-12-02] MEDS ORDERED: ENOXAPARIN SOD 30 MG/0.3 ML SYRINGE SC ONE (11:15)
[2017-12-02] MEDS: SODIUM CHLORIDE 0.9% 1,000 ML IV SCH (11:16)
[2017-12-02] MEDS: CHLORHEXIDINE 0.12% ORAL rinse 473ML MT SCH ×2 (11:16→22:07)
[2017-12-02] MEDS: SODIUM FERR GLUC 62.5MG/5ML 125 MG in SODIUM CHL 0.9% 100 ML IV SCH (13:33)
[2017-12-02] MEDS: SODIUM CHLORIDE 0.9% 500 ML IV SCH (15:37)
[2017-12-02] MEDS: ALBUMIN 25% 50 ML IV SCH (16:05)
[2017-12-02] MEDS: KETOROLAC TROMETH 30 MG/ML 1ML VIAL IV PRN (16:07)
[2017-12-02 16:14] LABS: BUN/Creatinine Ratio 13.4; Calcium 8.2 mg/dL (8.5-10.1); Potassium 4.2 mmol/L (3.5-5.1)
[2017-12-02] MEDS: AMIODARONE HCL 900 MG in DEXTROSE 500 ML IV SCH (21:30)
[2017-12-02] MEDS: METOPROLOL TARTRATE 25 MG TAB PO SCH (22:08)
[2017-12-02] MEDS: ATORVASTATIN 20 MG TAB PO SCH (22:08)
[2017-12-02] MEDS: ZOLPIDEM TARTRATE 5 MG TAB PO PRN (22:10)
[2017-12-03] VITALS (57 sets, daily range): BP systolic 92–134; BP diastolic 43–77
[2017-12-03] MEDS: ALBUMIN 25% 50 ML IV SCH
[2017-12-03] MEDS: SODIUM CHLORIDE 0.9% 1,000 ML IV SCH (00:20)
[2017-12-03] MEDS: HYDROcodone-ACET 10/325MG TAB PO PRN ×3 (01:55→13:24)
[2017-12-03] MEDS: NICARDIPINE 25MG/250ML BAG KIT 250 ML IV SCH ×4 (04:03→19:03)
[2017-12-03 05:21] LABS: Basophils # (auto) 0.1 uL; Basophils % (auto) 0.9 % (0.0-2.0); Eosinophils # (auto) 0.2 uL; Eosinophils % (auto) 1.6 % (0.0-7.0); Hematocrit 25.4 % (41.0-53.0); Hemoglobin 8.5 g/dL (13.5-17.5); Lymphocytes # (auto) 1.7 uL; Lymphocytes % (auto) 15.9 % (10.0-50.0); Mean Corpuscular Hemoglobin 31.2 pg (28.0-32.0); Mean Corpuscular Hgb Conc. 33.6 g/dL (32.0-36.0); Mean Corpuscular Volume 92.9 fL (80.0-100.0); Monocytes # (auto) 0.8 uL; Monocytes % (auto) 7.2 % (0.0-12.0); Neutrophils # (auto) 7.8 uL; Neutrophils % (auto) 74.4 % (37.0-80.0); Nucleated Red Blood Cells % 0.4 %; Platelet Count (auto) 165 10^3/uL (140-450); Red Blood Cells 2.73 10^6/uL (4.5-5.90); Red Cell Distribution Width 13.4 % (11.8-14.3); White Blood Cell 10.5 10^3/uL (4.4-10.8)
[2017-12-03 05:37] LABS: Potassium 4.2 mmol/L (3.5-5.1)
[2017-12-03 05:38] LABS: Albumin 3.4 g/dL (3.4-5.0); Magnesium 2.5 mg/dL (1.6-2.6)
[2017-12-03 05:40] LABS: Bilirubin, Total 0.8 mg/dL (0.2-1.0); Total Protein 6.6 g/dL (6.4-8.2)
[2017-12-03] MEDS ORDERED: SODIUM CHLORIDE 0.9% 1,000 ML IV SCH (06:45)
[2017-12-03] MEDS: glipiZIDE 5 MG TAB PO SCH (06:56)
[2017-12-03] MEDS: InsuLIN REG 1unit/0.01ml Soln (100units/ml) SC SCH ×4 (06:57→21:28)
[2017-12-03] MEDS: ACCU-CHEK COMFORT CURVE STRIP VI SCH ×4 (06:57→21:25)
[2017-12-03] MEDS ORDERED: LINEZOLID 600MG/300ML 300 ML IV SCH (07:00)
[2017-12-03] MEDS: IPRATROPIUM BROM 0.5 MG/2.5ML INH SOL NEB SCH ×5 (07:26→22:46)
[2017-12-03] MEDS: ACETYLCYSTEINE 10 %(100MG/ML) SOL 4ML NEB SCH ×3 (07:27→22:46)
[2017-12-03] MEDS: PIPERACILLIN-TAZOB 3.375GM 100 ML IV SCH ×3 (07:54→17:53)
[2017-12-03] MEDS: KETOROLAC TROMETH 30 MG/ML 1ML VIAL IV PRN (07:54)
[2017-12-03] MEDS: LINEZOLID 600MG/300ML 300 ML IV SCH ×2 (08:59→21:23)
[2017-12-03] MEDS: Boost Glucose Control 8 Ounces PO SCH ×4 (09:04→18:00)
[2017-12-03] MEDS: ENOXAPARIN SOD 30 MG/0.3 ML SYRINGE SC SCH (10:19)
[2017-12-03] MEDS: NITROGLYCERIN 0.4MG/HR TOPICAL PATCH TD SCH (10:19)
[2017-12-03] MEDS: ASPirin-EC 81 mg tab PO SCH (10:19)
[2017-12-03] MEDS: DOCUSATE SOD 100 MG CAP PO SCH ×2 (10:19→22:00)
[2017-12-03] MEDS: ASCORBIC ACID 500 MG TAB PO SCH ×2 (10:20→21:25)
[2017-12-03] MEDS: POTASSIUM CHL 20 Meq TABLET PO SCH (10:20)
[2017-12-03] MEDS: CHLORHEXIDINE 0.12% ORAL rinse 473ML MT SCH ×2 (10:20→21:25)
[2017-12-03] MEDS: metFORMIN HYDROCHLORIDE 500 MG TAB PO SCH (10:20)
[2017-12-03] MEDS: PANTOPRAZOLE 40 MG TAB PO SCH (10:20)
[2017-12-03] MEDS: METOPROLOL TARTRATE 25 MG TAB PO SCH ×2 (10:20→21:24)
[2017-12-03] MEDS: FUROSEMIDE 40 MG TAB PO SCH (12:20)
[2017-12-03] MEDS: SODIUM FERR GLUC 62.5MG/5ML 125 MG in SODIUM CHL 0.9% 100 ML IV SCH (12:35)
[2017-12-03] MEDS: SODIUM CHLORIDE 0.9% 500 ML IV SCH (15:03)
[2017-12-03] MEDS: ACETAMINOPHEN 325 MG TAB PO PRN (19:31)
[2017-12-03] MEDS: ATORVASTATIN 20 MG TAB PO SCH (21:23)
[2017-12-03] MEDS: AMIODARONE HCL 900 MG in DEXTROSE 500 ML IV SCH (21:30)
[2017-12-03] MEDS: ZOLPIDEM TARTRATE 5 MG TAB PO PRN (22:24)
[2017-12-03] MEDS: HYDROcodone-ACET 7.5/325MG TAB PO PRN (23:54)
[2017-12-04] VITALS (38 sets, daily range): BP systolic 102–129; BP diastolic 42–85
[2017-12-04] MEDS: NICARDIPINE 25MG/250ML BAG KIT 250 ML IV SCH ×5 (00:03→20:03)
[2017-12-04] MEDS: ACETAMINOPHEN 325 MG TAB PO PRN ×2 (01:33→12:23)
[2017-12-04 03:33] LABS: Basophils # (auto) 0.1 uL; Basophils % (auto) 0.5 % (0.0-2.0); Eosinophils # (auto) 0.2 uL; Eosinophils % (auto) 1.7 % (0.0-7.0); Hematocrit 25.7 % (41.0-53.0); Hemoglobin 8.5 g/dL (13.5-17.5); Lymphocytes # (auto) 2.1 uL; Lymphocytes % (auto) 18.3 % (10.0-50.0); Mean Corpuscular Hemoglobin 30.7 pg (28.0-32.0); Mean Corpuscular Hgb Conc. 33.1 g/dL (32.0-36.0); Mean Corpuscular Volume 92.7 fL (80.0-100.0); Monocytes # (auto) 1.1 uL; Monocytes % (auto) 9.2 % (0.0-12.0); Neutrophils # (auto) 8.1 uL; Neutrophils % (auto) 70.3 % (37.0-80.0); Nucleated Red Blood Cells % 0.1 %; Platelet Count (auto) 205 10^3/uL (140-450); Red Blood Cells 2.77 10^6/uL (4.5-5.90); Red Cell Distribution Width 13.7 % (11.8-14.3); White Blood Cell 11.5 10^3/uL (4.4-10.8)
[2017-12-04 03:45] LABS: Albumin 3.1 g/dL (3.4-5.0); BUN/Creatinine Ratio 14.5; Calcium 7.9 mg/dL (8.5-10.1); Magnesium 2.5 mg/dL (1.6-2.6); Potassium 3.8 mmol/L (3.5-5.1)
[2017-12-04 03:48] LABS: Bilirubin, Total 1.2 mg/dL (0.2-1.0); Total Protein 6.3 g/dL (6.4-8.2)
[2017-12-04] MEDS: HYDROcodone-ACET 7.5/325MG TAB PO PRN ×2 (05:47→22:54)
[2017-12-04] MEDS: POTASSIUM CHL 20 Meq TABLET PO PRN (05:48)
[2017-12-04] MEDS: PIPERACILLIN-TAZOB 3.375GM 100 ML IV SCH ×4 (05:48→18:29)
[2017-12-04] MEDS: InsuLIN REG 1unit/0.01ml Soln (100units/ml) SC SCH ×4 (06:23→22:00)
[2017-12-04] MEDS: glipiZIDE 5 MG TAB PO SCH (06:23)
[2017-12-04] MEDS: ACCU-CHEK COMFORT CURVE STRIP VI SCH ×4 (06:23→22:17)
[2017-12-04] MEDS: fentaNYL CITRATE 100 MCG/2 ML VL IV PRN ×4 (06:53→18:38)
[2017-12-04] MEDS: ACETYLCYSTEINE 10 %(100MG/ML) SOL 4ML NEB SCH ×3 (07:05→22:25)
[2017-12-04] MEDS: IPRATROPIUM BROM 0.5 MG/2.5ML INH SOL NEB SCH ×5 (07:05→22:25)
[2017-12-04] MEDS: LINEZOLID 600MG/300ML 300 ML IV SCH ×2 (09:18→21:39)
[2017-12-04] MEDS: Boost Glucose Control 8 Ounces PO SCH ×3 (09:22→18:00)
[2017-12-04] MEDS: ENOXAPARIN SOD 30 MG/0.3 ML SYRINGE SC SCH (10:49)
[2017-12-04] MEDS: NITROGLYCERIN 0.4MG/HR TOPICAL PATCH TD SCH (10:50)
[2017-12-04] MEDS: metFORMIN HYDROCHLORIDE 500 MG TAB PO SCH (10:50)
[2017-12-04] MEDS: ASPirin-EC 81 mg tab PO SCH (10:51)
[2017-12-04] MEDS: METOPROLOL TARTRATE 25 MG TAB PO SCH ×2 (10:51→22:16)
[2017-12-04] MEDS: ASCORBIC ACID 500 MG TAB PO SCH ×2 (10:51→22:17)
[2017-12-04] MEDS: DOCUSATE SOD 100 MG CAP PO SCH ×2 (10:52→22:00)
[2017-12-04] MEDS: POTASSIUM CHL 20 Meq TABLET PO SCH (10:52)
[2017-12-04] MEDS: PANTOPRAZOLE 40 MG TAB PO SCH (10:52)
[2017-12-04] MEDS: FUROSEMIDE 40 MG TAB PO SCH (10:52)
[2017-12-04] MEDS: CHLORHEXIDINE 0.12% ORAL rinse 473ML MT SCH ×2 (10:53→22:14)
[2017-12-04] MEDS: SODIUM FERR GLUC 62.5MG/5ML 125 MG in SODIUM CHL 0.9% 100 ML IV SCH (12:34)
[2017-12-04] MEDS: SODIUM CHLORIDE 0.9% 500 ML IV SCH (15:03)
[2017-12-04] MEDS: HYDROcodone-ACET 10/325MG TAB PO PRN (16:48)
[2017-12-04] MEDS: AMIODARONE HCL 900 MG in DEXTROSE 500 ML IV SCH (21:30)
[2017-12-04] MEDS: MORPHINE SULFATE 8mg/ml INJ SDV IV PRN (21:40)
[2017-12-04] MEDS: ATORVASTATIN 20 MG TAB PO SCH (22:15)
[2017-12-04] MEDS: FLORASTOR (S. BOULARDII) 250 MG CAP PO SCH (22:15)
[2017-12-05] VITALS (64 sets, daily range): BP systolic 80–133; BP diastolic 50–85
[2017-12-05] MEDS: PIPERACILLIN-TAZOB 3.375GM 100 ML IV SCH ×4 (00:14→18:15)
[2017-12-05] MEDS: NICARDIPINE 25MG/250ML BAG KIT 250 ML IV SCH ×5 (01:03→21:03)
[2017-12-05 03:54] LABS: Basophils # (auto) 0.1 uL; Basophils % (auto) 0.4 % (0.0-2.0); Eosinophils # (auto) 0.4 uL; Eosinophils % (auto) 2.5 % (0.0-7.0); Hematocrit 30.1 % (41.0-53.0); Hemoglobin 9.9 g/dL (13.5-17.5); Lymphocytes # (auto) 2.9 uL; Lymphocytes % (auto) 19.1 % (10.0-50.0); Mean Corpuscular Hemoglobin 30.8 pg (28.0-32.0); Mean Corpuscular Hgb Conc. 33.1 g/dL (32.0-36.0); Monocytes # (auto) 1.3 uL; Monocytes % (auto) 8.8 % (0.0-12.0); Neutrophils # (auto) 10.5 uL; Neutrophils % (auto) 69.2 % (37.0-80.0); Nucleated Red Blood Cells % 0.3 %; Platelet Count (auto) 307 10^3/uL (140-450); Red Blood Cells 3.23 10^6/uL (4.5-5.90); Red Cell Distribution Width 13.5 % (11.8-14.3); White Blood Cell 15.2 10^3/uL (4.4-10.8)
[2017-12-05 03:56] LABS: Albumin 3.4 g/dL (3.4-5.0); BUN/Creatinine Ratio 10.4; Calcium 8.6 mg/dL (8.5-10.1); Magnesium 2.8 mg/dL (1.6-2.6); Potassium 3.6 mmol/L (3.5-5.1)
[2017-12-05 03:57] LABS: Bilirubin, Total 1.4 mg/dL (0.2-1.0); Total Protein 7.7 g/dL (6.4-8.2)
[2017-12-05] MEDS: IPRATROPIUM BROM 0.5 MG/2.5ML INH SOL NEB SCH ×5 (05:41→22:33)
[2017-12-05] MEDS: ACETYLCYSTEINE 10 %(100MG/ML) SOL 4ML NEB SCH ×3 (05:41→22:32)
[2017-12-05] MEDS: InsuLIN REG 1unit/0.01ml Soln (100units/ml) SC SCH ×4 (06:59→22:00)
[2017-12-05] MEDS: ACCU-CHEK COMFORT CURVE STRIP VI SCH ×4 (06:59→22:15)
[2017-12-05] MEDS: HYDROcodone-ACET 10/325MG TAB PO PRN ×2 (06:59→18:58)
[2017-12-05] MEDS: glipiZIDE 5 MG TAB PO SCH (06:59)
[2017-12-05] MEDS: Boost Glucose Control 8 Ounces PO SCH ×3 (08:16→18:00)
[2017-12-05] MEDS: POTASSIUM CHL 20 Meq TABLET PO PRN (08:17)
[2017-12-05] MEDS: ACETAMINOPHEN 325 MG TAB PO PRN ×2 (08:17→23:26)
[2017-12-05] MEDS: ENOXAPARIN SOD 30 MG/0.3 ML SYRINGE SC SCH (09:36)
[2017-12-05] MEDS: LINEZOLID 600MG/300ML 300 ML IV SCH (09:37)
[2017-12-05] MEDS: NITROGLYCERIN 0.4MG/HR TOPICAL PATCH TD SCH (09:37)
[2017-12-05] MEDS: FUROSEMIDE 40 MG TAB PO SCH (09:37)
[2017-12-05] MEDS: ASPirin-EC 81 mg tab PO SCH (09:38)
[2017-12-05] MEDS: METOPROLOL TARTRATE 25 MG TAB PO SCH ×2 (09:38→22:15)
[2017-12-05] MEDS: ASCORBIC ACID 500 MG TAB PO SCH ×2 (09:38→22:15)
[2017-12-05] MEDS: PANTOPRAZOLE 40 MG TAB PO SCH (09:38)
[2017-12-05] MEDS: metFORMIN HYDROCHLORIDE 500 MG TAB PO SCH (09:38)
[2017-12-05] MEDS: FLORASTOR (S. BOULARDII) 250 MG CAP PO SCH ×2 (09:38→22:14)
[2017-12-05] MEDS: DOCUSATE SOD 100 MG CAP PO SCH ×2 (09:38→22:00)
[2017-12-05] MEDS: POTASSIUM CHL 20 Meq TABLET PO SCH ×2 (09:39→22:14)
[2017-12-05] MEDS: CHLORHEXIDINE 0.12% ORAL rinse 473ML MT SCH ×2 (09:41→22:16)
[2017-12-05] MEDS ORDERED: LIDOCAINE 1% (LOCAL ANESTH.) PF 5ml SDV ONE (11:37)
[2017-12-05] MEDS: SODIUM FERR GLUC 62.5MG/5ML 125 MG in SODIUM CHL 0.9% 100 ML IV SCH ×2 (12:00→16:30)
[2017-12-05] MEDS ORDERED: LEVOFLOXACIN 500 MG TAB PO ONE (12:15)
[2017-12-05] MEDS: SODIUM CHLORIDE 0.9% 500 ML IV SCH (14:20)
[2017-12-05] MEDS: PRO-STAT 64 30ML PO SCH (18:15)
[2017-12-05] MEDS: AMIODARONE HCL 900 MG in DEXTROSE 500 ML IV SCH (21:30)
[2017-12-05] MEDS ORDERED: POTASSIUM CHL 20 Meq TABLET PO SCH (22:00)
[2017-12-05] MEDS: ATORVASTATIN 20 MG TAB PO SCH (22:14)
[2017-12-05] MEDS: LINEZOLID 600MG TABLET PO SCH (22:14)
[2017-12-05] MEDS: ZOLPIDEM TARTRATE 5 MG TAB PO PRN (22:15)
[2017-12-05] MEDS: MORPHINE SULFATE 8mg/ml INJ SDV IV PRN (23:26)
[2017-12-06] VITALS (56 sets, daily range): BP systolic 49–164; BP diastolic 53–87
[2017-12-06] MEDS: PIPERACILLIN-TAZOB 3.375GM 100 ML IV SCH ×2 (01:07→06:18)
[2017-12-06] MEDS: NICARDIPINE 25MG/250ML BAG KIT 250 ML IV SCH ×5 (02:03→22:03)
[2017-12-06] MEDS: IPRATROPIUM BROM 0.5 MG/2.5ML INH SOL NEB SCH ×6 (02:32→22:10)
[2017-12-06 03:58] LABS: Basophils # (auto) 0.1 uL; Basophils % (auto) 0.8 % (0.0-2.0); Eosinophils # (auto) 0.3 uL; Eosinophils % (auto) 2.5 % (0.0-7.0); Hematocrit 27.9 % (41.0-53.0); Hemoglobin 9.4 g/dL (13.5-17.5); Lymphocytes # (auto) 2.5 uL; Lymphocytes % (auto) 20.4 % (10.0-50.0); Mean Corpuscular Hemoglobin 31.3 pg (28.0-32.0); Mean Corpuscular Hgb Conc. 33.8 g/dL (32.0-36.0); Mean Corpuscular Volume 92.6 fL (80.0-100.0); Monocytes # (auto) 1.2 uL; Monocytes % (auto) 9.7 % (0.0-12.0); Neutrophils % (auto) 66.6 % (37.0-80.0); Nucleated Red Blood Cells % 0.2 %; Platelet Count (auto) 360 10^3/uL (140-450); Red Blood Cells 3.01 10^6/uL (4.5-5.90); Red Cell Distribution Width 14.1 % (11.8-14.3); White Blood Cell 12.1 10^3/uL (4.4-10.8)
[2017-12-06 04:16] LABS: Albumin 3.2 g/dL (3.4-5.0); BUN/Creatinine Ratio 16.1; Bilirubin, Total 1.2 mg/dL (0.2-1.0); Calcium 8.3 mg/dL (8.5-10.1); Magnesium 2.7 mg/dL (1.6-2.6); Potassium 3.7 mmol/L (3.5-5.1)
[2017-12-06] MEDS: ACETYLCYSTEINE 10 %(100MG/ML) SOL 4ML NEB SCH ×3 (06:35→22:10)
[2017-12-06] MEDS: InsuLIN REG 1unit/0.01ml Soln (100units/ml) SC SCH ×4 (07:00→22:00)
[2017-12-06] MEDS: glipiZIDE 5 MG TAB PO SCH (07:00)
[2017-12-06] MEDS: INSULIN LANTUS (GLARGINE) 1 /0.01ml (100units/ml) SC SCH ×2 (07:00→22:33)
[2017-12-06] MEDS: ACCU-CHEK COMFORT CURVE STRIP VI SCH ×4 (07:00→22:14)
[2017-12-06] MEDS: Boost Glucose Control 8 Ounces PO SCH ×3 (08:00→17:56)
[2017-12-06] MEDS: PRO-STAT 64 30ML PO SCH ×2 (08:28→17:56)
[2017-12-06] MEDS: NITROGLYCERIN 0.4MG/HR TOPICAL PATCH TD SCH (09:23)
[2017-12-06] MEDS: PANTOPRAZOLE 40 MG TAB PO SCH (09:24)
[2017-12-06] MEDS: FLORASTOR (S. BOULARDII) 250 MG CAP PO SCH ×2 (09:24→22:23)
[2017-12-06] MEDS: LEVOFLOXACIN 500 MG TAB PO SCH (09:24)
[2017-12-06] MEDS: POTASSIUM CHL 20 Meq TABLET PO SCH ×2 (09:24→22:23)
[2017-12-06] MEDS: ASPirin-EC 81 mg tab PO SCH (09:24)
[2017-12-06] MEDS: DOCUSATE SOD 100 MG CAP PO SCH ×2 (09:25→22:00)
[2017-12-06] MEDS: METOPROLOL TARTRATE 25 MG TAB PO SCH ×2 (09:25→22:25)
[2017-12-06] MEDS: FUROSEMIDE 40 MG TAB PO SCH (09:25)
[2017-12-06] MEDS: CHLORHEXIDINE 0.12% ORAL rinse 473ML MT SCH ×2 (09:41→22:24)
[2017-12-06] MEDS: LINEZOLID 600MG TABLET PO SCH ×2 (09:42→22:23)
[2017-12-06] MEDS: ASCORBIC ACID 500 MG TAB PO SCH (09:52)
[2017-12-06] MEDS ORDERED: ENOXAPARIN SOD 40 MG/0.4 ML SYRINGE SC SCH (10:00)
[2017-12-06] MEDS: SODIUM FERR GLUC 62.5MG/5ML 125 MG in SODIUM CHL 0.9% 100 ML IV SCH (11:27)
[2017-12-06] MEDS ORDERED: hydrALAZINE HCL 10 MG TAB PO SCH (12:00)
[2017-12-06] MEDS: SODIUM CHLORIDE 0.9% 500 ML IV SCH (15:03)
[2017-12-06] MEDS ORDERED: fentaNYL CITRATE 100 MCG/2 ML VL IV PRN (17:30)
[2017-12-06] MEDS: HYDROcodone-ACET 7.5/325MG TAB PO PRN (18:52)
[2017-12-06] MEDS: AMIODARONE HCL 900 MG in DEXTROSE 500 ML IV SCH (21:30)
[2017-12-06] MEDS: ACETAMINOPHEN 325 MG TAB PO PRN (21:32)
[2017-12-06] MEDS: ATORVASTATIN 20 MG TAB PO SCH (22:23)
[2017-12-06] MEDS: MEGESTROL ACET 400MG/10ML ORAL SUSP PO SCH (22:23)
[2017-12-06] MEDS: ZOLPIDEM TARTRATE 5 MG TAB PO PRN (22:34)
[2017-12-07] MEDS: IPRATROPIUM BROM 0.5 MG/2.5ML INH SOL NEB SCH ×6 (02:07→22:25)
[2017-12-07] MEDS: NICARDIPINE 25MG/250ML BAG KIT 250 ML IV SCH ×2 (03:00→08:03)
[2017-12-07 04:00] VITALS: BP 107/59
[2017-12-07 05:39] LABS: Hematocrit 28.5 % (41.0-53.0); Hemoglobin 9.6 g/dL (13.5-17.5); Mean Corpuscular Hemoglobin 31.5 pg (28.0-32.0); Mean Corpuscular Hgb Conc. 33.6 g/dL (32.0-36.0); Mean Corpuscular Volume 93.7 fL (80.0-100.0); Platelet Count (auto) 418 10^3/uL (140-450); Red Blood Cells 3.04 10^6/uL (4.5-5.90); Red Cell Distribution Width 14.6 % (11.8-14.3); White Blood Cell 11.4 10^3/uL (4.4-10.8)
[2017-12-07 05:54] LABS: Potassium 3.8 mmol/L (3.5-5.1)
[2017-12-07 05:57] LABS: Albumin 3.1 g/dL (3.4-5.0); BUN/Creatinine Ratio 16.2; Calcium 8.5 mg/dL (8.5-10.1); Magnesium 2.5 mg/dL (1.6-2.6)
[2017-12-07] MEDS: HYDROcodone-ACET 7.5/325MG TAB PO PRN ×2 (06:00→15:10)
[2017-12-07 06:01] LABS: Basophils % (manual) 0 (0.0-2.0); Blast Cells 0; Promyelocytes % 0; Reactive Lymphocytes 0
[2017-12-07] MEDS: ACETYLCYSTEINE 10 %(100MG/ML) SOL 4ML NEB SCH ×3 (06:06→22:25)
[2017-12-07 06:10] LABS: Bilirubin, Total 1.2 mg/dL (0.2-1.0); Total Protein 7.4 g/dL (6.4-8.2)
[2017-12-07] MEDS: ACCU-CHEK COMFORT CURVE STRIP VI SCH ×4 (06:31→21:53)
[2017-12-07 06:46] LABS: Band Neutrophils % (manual) 2; Eosinophils % (manual) 5 (0-7); Lymphocytes % (manual) 16 (10.0-50.0); Metamyelocytes % 1; Monocytes % (manual) 12 (0-12); Myelocytes % 1
[2017-12-07] MEDS: POTASSIUM CHL 20 Meq TABLET PO PRN (06:53)
[2017-12-07] MEDS: InsuLIN REG 1unit/0.01ml Soln (100units/ml) SC SCH ×4 (07:00→22:00)
[2017-12-07] MEDS: glipiZIDE 5 MG TAB PO SCH (07:00)
[2017-12-07] MEDS: INSULIN LANTUS (GLARGINE) 1 /0.01ml (100units/ml) SC SCH ×2 (07:00→21:52)
[2017-12-07 08:00] VITALS: BP 113/63
[2017-12-07] MEDS: PRO-STAT 64 30ML PO SCH ×2 (08:00→18:00)
[2017-12-07] MEDS: Boost Glucose Control 8 Ounces PO SCH ×3 (08:00→18:00)
[2017-12-07] MEDS: ENOXAPARIN SOD 40 MG/0.4 ML SYRINGE SC SCH (09:39)
[2017-12-07] MEDS: NITROGLYCERIN 0.4MG/HR TOPICAL PATCH TD SCH (09:39)
[2017-12-07] MEDS: MEGESTROL ACET 400MG/10ML ORAL SUSP PO SCH ×2 (09:40→22:15)
[2017-12-07] MEDS: LINEZOLID 600MG TABLET PO SCH ×2 (09:40→22:17)
[2017-12-07] MEDS: ASPirin-EC 81 mg tab PO SCH (09:40)
[2017-12-07] MEDS: POTASSIUM CHL 20 Meq TABLET PO SCH ×2 (09:40→22:14)
[2017-12-07] MEDS: PANTOPRAZOLE 40 MG TAB PO SCH (09:40)
[2017-12-07] MEDS: METOPROLOL TARTRATE 25 MG TAB PO SCH ×2 (09:41→22:14)
[2017-12-07] MEDS: FUROSEMIDE 40 MG TAB PO SCH (09:41)
[2017-12-07] MEDS: FLORASTOR (S. BOULARDII) 250 MG CAP PO SCH ×2 (09:41→22:14)
[2017-12-07] MEDS: LEVOFLOXACIN 500 MG TAB PO SCH (09:41)
[2017-12-07] MEDS: DOCUSATE SOD 100 MG CAP PO SCH ×2 (09:41→22:14)
[2017-12-07] MEDS: CHLORHEXIDINE 0.12% ORAL rinse 473ML MT SCH ×2 (09:42→22:00)
[2017-12-07] MEDS ORDERED: LISINOPRIL 5 MG TAB PO SCH (10:00)
[2017-12-07 12:00] VITALS: BP 112/81
[2017-12-07] MEDS: SODIUM CHLORIDE 0.9% 500 ML IV SCH (15:09)
[2017-12-07 16:00] VITALS: BP 104/65
[2017-12-07] MEDS: FERROUS SULFATE 325 MG TAB PO SCH (18:00)
[2017-12-07 19:52] VITALS: BP 108/64
[2017-12-07] MEDS: AMIODARONE HCL 900 MG in DEXTROSE 500 ML IV SCH (21:30)
[2017-12-07 22:00] VITALS: BP 120/77
[2017-12-07] MEDS: ATORVASTATIN 20 MG TAB PO SCH (22:14)
[2017-12-07] MEDS: ZOLPIDEM TARTRATE 5 MG TAB PO PRN (22:15)
[2017-12-07] MEDS: HYDROcodone-ACET 5/325MG TAB PO PRN (22:15)
[2017-12-08] VITALS (7 sets, daily range): BP systolic 96–114; BP diastolic 46–70
[2017-12-08] MEDS: HYDROcodone-ACET 7.5/325MG TAB PO PRN ×3 (00:20→18:30)
[2017-12-08] MEDS: fentaNYL CITRATE 100 MCG/2 ML VL IV PRN (01:38)
[2017-12-08] MEDS: IPRATROPIUM BROM 0.5 MG/2.5ML INH SOL NEB SCH ×6 (02:41→22:36)
[2017-12-08 05:25] LABS: Basophils # (auto) 0.1 uL; Basophils % (auto) 0.4 % (0.0-2.0); Eosinophils # (auto) 0.3 uL; Eosinophils % (auto) 1.9 % (0.0-7.0); Hematocrit 31.3 % (41.0-53.0); Hemoglobin 10.3 g/dL (13.5-17.5); Lymphocytes # (auto) 2.1 uL; Lymphocytes % (auto) 16.3 % (10.0-50.0); Mean Corpuscular Hemoglobin 31.4 pg (28.0-32.0); Mean Corpuscular Volume 95.1 fL (80.0-100.0); Monocytes # (auto) 1.3 uL; Monocytes % (auto) 9.9 % (0.0-12.0); Neutrophils # (auto) 9.4 uL; Neutrophils % (auto) 71.5 % (37.0-80.0); Nucleated Red Blood Cells % 0.2 %; Platelet Count (auto) 434 10^3/uL (140-450); Red Blood Cells 3.29 10^6/uL (4.5-5.90); Red Cell Distribution Width 14.4 % (11.8-14.3); White Blood Cell 13.1 10^3/uL (4.4-10.8)
[2017-12-08 05:42] LABS: Albumin 3.3 g/dL (3.4-5.0); BUN/Creatinine Ratio 15.5; Bilirubin, Total 1.1 mg/dL (0.2-1.0); Calcium 8.7 mg/dL (8.5-10.1); Magnesium 2.9 mg/dL (1.6-2.6); Potassium 4.3 mmol/L (3.5-5.1); Total Protein 7.6 g/dL (6.4-8.2)
[2017-12-08] MEDS: ACETYLCYSTEINE 10 %(100MG/ML) SOL 4ML NEB SCH ×3 (06:34→22:37)
[2017-12-08] MEDS: ACCU-CHEK COMFORT CURVE STRIP VI SCH ×4 (06:55→22:09)
[2017-12-08] MEDS: INSULIN LANTUS (GLARGINE) 1 /0.01ml (100units/ml) SC SCH ×2 (06:55→22:00)
[2017-12-08] MEDS: InsuLIN REG 1unit/0.01ml Soln (100units/ml) SC SCH ×4 (06:55→22:00)
[2017-12-08] MEDS: glipiZIDE 5 MG TAB PO SCH (06:56)
[2017-12-08] MEDS: ACETAMINOPHEN 325 MG TAB PO PRN (06:57)
[2017-12-08] MEDS: Boost Glucose Control 8 Ounces PO SCH ×3 (08:00→18:00)
[2017-12-08] MEDS: PRO-STAT 64 30ML PO SCH ×2 (08:00→18:00)
[2017-12-08] MEDS ORDERED: FUROSEMIDE 40 MG TAB PO SCH ×2 (08:00→10:00)
[2017-12-08] MEDS: FERROUS SULFATE 325 MG TAB PO SCH ×2 (09:55→18:00)
[2017-12-08] MEDS: FUROSEMIDE 20 MG TAB PO SCH ×2 (09:56→10:00)
[2017-12-08] MEDS: POTASSIUM CHL 20 Meq TABLET PO SCH ×2 (09:56→22:24)
[2017-12-08] MEDS: ASPirin-EC 81 mg tab PO SCH (09:56)
[2017-12-08] MEDS: PANTOPRAZOLE 40 MG TAB PO SCH (09:56)
[2017-12-08] MEDS: METOPROLOL TARTRATE 25 MG TAB PO SCH ×2 (09:56→22:25)
[2017-12-08] MEDS: LEVOFLOXACIN 500 MG TAB PO SCH (09:57)
[2017-12-08] MEDS: DOCUSATE SOD 100 MG CAP PO SCH ×2 (09:57→22:00)
[2017-12-08] MEDS: LINEZOLID 600MG TABLET PO SCH ×2 (09:57→22:25)
[2017-12-08] MEDS: FLORASTOR (S. BOULARDII) 250 MG CAP PO SCH ×2 (09:57→22:24)
[2017-12-08] MEDS: MEGESTROL ACET 400MG/10ML ORAL SUSP PO SCH ×2 (09:58→22:25)
[2017-12-08] MEDS: NITROGLYCERIN 0.4MG/HR TOPICAL PATCH TD SCH (09:58)
[2017-12-08] MEDS: ENOXAPARIN SOD 40 MG/0.4 ML SYRINGE SC SCH (09:58)
[2017-12-08] MEDS: CHLORHEXIDINE 0.12% ORAL rinse 473ML MT SCH ×2 (10:01→22:07)
[2017-12-08] MEDS ORDERED: LIDOCAINE 1% (LOCAL ANESTH.) PF 5ml SDV ONE (11:08)
[2017-12-08] MEDS ORDERED: LIDOCAINE 2% (LOCAL ANESTH.) PF 5ml SDV ONE (11:22)
[2017-12-08] MEDS: SODIUM CHLORIDE 0.9% 500 ML IV SCH (18:11)
[2017-12-08] MEDS: ATORVASTATIN 20 MG TAB PO SCH (22:24)
[2017-12-09] VITALS: BP 92/59
[2017-12-09] MEDS: HYDROcodone-ACET 7.5/325MG TAB PO PRN ×4 (00:51→21:51)
[2017-12-09 05:51] LABS: Basophils # (auto) 0 uL; Basophils % (auto) 0.4 % (0.0-2.0); Eosinophils # (auto) 0.4 uL; Eosinophils % (auto) 3.1 % (0.0-7.0); Hematocrit 31.1 % (41.0-53.0); Hemoglobin 10.1 g/dL (13.5-17.5); Lymphocytes # (auto) 1.9 uL; Lymphocytes % (auto) 14.1 % (10.0-50.0); Mean Corpuscular Hemoglobin 30.9 pg (28.0-32.0); Mean Corpuscular Hgb Conc. 32.4 g/dL (32.0-36.0); Mean Corpuscular Volume 95.5 fL (80.0-100.0); Monocytes # (auto) 1.2 uL; Monocytes % (auto) 8.9 % (0.0-12.0); Neutrophils # (auto) 9.8 uL; Neutrophils % (auto) 73.5 % (37.0-80.0); Nucleated Red Blood Cells % 0.1 %; Platelet Count (auto) 434 10^3/uL (140-450); Red Blood Cells 3.26 10^6/uL (4.5-5.90); Red Cell Distribution Width 14.7 % (11.8-14.3); White Blood Cell 13.3 10^3/uL (4.4-10.8)
[2017-12-09 06:10] LABS: Potassium 4.3 mmol/L (3.5-5.1)
[2017-12-09 06:14] LABS: Albumin 2.9 g/dL (3.4-5.0); BUN/Creatinine Ratio 16.4; Calcium 8.3 mg/dL (8.5-10.1); Magnesium 2.5 mg/dL (1.6-2.6)
[2017-12-09 06:17] LABS: Bilirubin, Total 0.9 mg/dL (0.2-1.0); Total Protein 7.6 g/dL (6.4-8.2)
[2017-12-09] MEDS: ACETYLCYSTEINE 10 %(100MG/ML) SOL 4ML NEB SCH ×3 (06:24→22:29)
[2017-12-09] MEDS: IPRATROPIUM BROM 0.5 MG/2.5ML INH SOL NEB SCH ×6 (06:24→22:45)
[2017-12-09] MEDS: InsuLIN REG 1unit/0.01ml Soln (100units/ml) SC SCH ×4 (07:00→21:24)
[2017-12-09] MEDS: INSULIN LANTUS (GLARGINE) 1 /0.01ml (100units/ml) SC SCH ×2 (07:00→21:31)
[2017-12-09] MEDS: glipiZIDE 5 MG TAB PO SCH (07:05)
[2017-12-09] MEDS: ACCU-CHEK COMFORT CURVE STRIP VI SCH ×4 (07:06→21:24)
[2017-12-09 07:49] VITALS: BP 120/53
[2017-12-09] MEDS: PRO-STAT 64 30ML PO SCH ×2 (08:00→18:00)
[2017-12-09] MEDS: Boost Glucose Control 8 Ounces PO SCH ×3 (08:00→18:00)
[2017-12-09] MEDS: fentaNYL CITRATE 100 MCG/2 ML VL IV PRN ×2 (08:09→20:24)
[2017-12-09] MEDS: FERROUS SULFATE 325 MG TAB PO SCH ×2 (08:09→19:25)
[2017-12-09] MEDS: ASPirin-EC 81 mg tab PO SCH (10:41)
[2017-12-09] MEDS: LINEZOLID 600MG TABLET PO SCH ×2 (10:41→21:23)
[2017-12-09] MEDS: LEVOFLOXACIN 500 MG TAB PO SCH (10:41)
[2017-12-09] MEDS: ENOXAPARIN SOD 40 MG/0.4 ML SYRINGE SC SCH (10:41)
[2017-12-09] MEDS: PANTOPRAZOLE 40 MG TAB PO SCH (10:41)
[2017-12-09] MEDS: MEGESTROL ACET 400MG/10ML ORAL SUSP PO SCH ×2 (10:41→21:24)
[2017-12-09] MEDS: FLORASTOR (S. BOULARDII) 250 MG CAP PO SCH ×2 (10:41→21:23)
[2017-12-09] MEDS: POTASSIUM CHL 20 Meq TABLET PO SCH ×2 (10:41→21:23)
[2017-12-09] MEDS: DOCUSATE SOD 100 MG CAP PO SCH ×2 (10:41→21:22)
[2017-12-09] MEDS: NITROGLYCERIN 0.4MG/HR TOPICAL PATCH TD SCH (10:42)
[2017-12-09] MEDS: FUROSEMIDE 20 MG TAB PO SCH (10:42)
[2017-12-09] MEDS: CHLORHEXIDINE 0.12% ORAL rinse 473ML MT SCH ×2 (10:43→22:18)
[2017-12-09] MEDS: METOPROLOL TARTRATE 25 MG TAB PO SCH ×2 (10:43→21:22)
[2017-12-09 12:09] VITALS: BP 129/77
[2017-12-09] MEDS ORDERED: LIDOCAINE 2% (LOCAL ANESTH.) PF 5ml SDV ONE (12:14)
[2017-12-09] MEDS: SODIUM CHLORIDE 0.9% 500 ML IV SCH (14:07)
[2017-12-09 15:49] VITALS: BP 101/56
[2017-12-09 19:51] VITALS: BP 125/68
[2017-12-09 20:42] VITALS: BP 125/68
[2017-12-09] MEDS: ATORVASTATIN 20 MG TAB PO SCH (21:23)
[2017-12-10] MEDS: ZOLPIDEM TARTRATE 5 MG TAB PO PRN (00:12)
[2017-12-10] MEDS: MORPHINE SULFATE 8mg/ml INJ SDV IV PRN ×3 (00:12→17:09)
[2017-12-10 00:26] VITALS: BP 107/61
[2017-12-10 05:24] LABS: Basophils # (auto) 0.1 uL; Basophils % (auto) 0.9 % (0.0-2.0); Eosinophils # (auto) 0.3 uL; Eosinophils % (auto) 2.9 % (0.0-7.0); Hematocrit 31.7 % (41.0-53.0); Hemoglobin 10.4 g/dL (13.5-17.5); Lymphocytes # (auto) 1.4 uL; Mean Corpuscular Hemoglobin 31.1 pg (28.0-32.0); Mean Corpuscular Hgb Conc. 32.7 g/dL (32.0-36.0); Mean Corpuscular Volume 95.1 fL (80.0-100.0); Monocytes # (auto) 0.8 uL; Monocytes % (auto) 7.3 % (0.0-12.0); Neutrophils # (auto) 8.4 uL; Neutrophils % (auto) 75.9 % (37.0-80.0); Nucleated Red Blood Cells % 0.4 %; Platelet Count (auto) 428 10^3/uL (140-450); Red Blood Cells 3.34 10^6/uL (4.5-5.90); White Blood Cell 11.1 10^3/uL (4.4-10.8)
[2017-12-10 05:42] LABS: Albumin 3.1 g/dL (3.4-5.0); BUN/Creatinine Ratio 15.9; Bilirubin, Total 0.9 mg/dL (0.2-1.0); Calcium 8.7 mg/dL (8.5-10.1); Magnesium 2.8 mg/dL (1.6-2.6); Potassium 4.5 mmol/L (3.5-5.1); Total Protein 7.7 g/dL (6.4-8.2)
[2017-12-10] MEDS: glipiZIDE 5 MG TAB PO SCH (06:32)
[2017-12-10] MEDS: ACCU-CHEK COMFORT CURVE STRIP VI SCH ×4 (06:37→22:18)
[2017-12-10] MEDS: InsuLIN REG 1unit/0.01ml Soln (100units/ml) SC SCH ×4 (06:38→22:00)
[2017-12-10] MEDS: INSULIN LANTUS (GLARGINE) 1 /0.01ml (100units/ml) SC SCH ×2 (06:38→22:00)
[2017-12-10] MEDS: ACETYLCYSTEINE 10 %(100MG/ML) SOL 4ML NEB SCH ×3 (07:06→21:58)
[2017-12-10] MEDS: IPRATROPIUM BROM 0.5 MG/2.5ML INH SOL NEB SCH ×5 (07:06→21:57)
[2017-12-10] MEDS ORDERED: ENOXAPARIN SOD 30 MG/0.3 ML SYRINGE SC SCH (08:00)
[2017-12-10 08:01] VITALS: BP 120/58
[2017-12-10] MEDS: Boost Glucose Control 8 Ounces PO SCH ×3 (08:41→18:29)
[2017-12-10] MEDS: FERROUS SULFATE 325 MG TAB PO SCH ×2 (08:41→18:28)
[2017-12-10] MEDS: PRO-STAT 64 30ML PO SCH ×2 (08:42→18:29)
[2017-12-10] MEDS: CHLORHEXIDINE 0.12% ORAL rinse 473ML MT SCH ×2 (10:00→22:00)
[2017-12-10] MEDS: POTASSIUM CHL 20 Meq TABLET PO SCH (10:00)
[2017-12-10] MEDS: METOPROLOL TARTRATE 25 MG TAB PO SCH ×2 (10:00→22:11)
[2017-12-10] MEDS: NITROGLYCERIN 0.4MG/HR TOPICAL PATCH TD SCH (10:54)
[2017-12-10] MEDS: LEVOFLOXACIN 500 MG TAB PO SCH (10:54)
[2017-12-10] MEDS: MEGESTROL ACET 400MG/10ML ORAL SUSP PO SCH ×2 (10:54→22:03)
[2017-12-10] MEDS: FLORASTOR (S. BOULARDII) 250 MG CAP PO SCH ×2 (10:55→22:03)
[2017-12-10] MEDS: ASPirin-EC 81 mg tab PO SCH (10:55)
[2017-12-10] MEDS: FUROSEMIDE 20 MG TAB PO SCH (10:55)
[2017-12-10] MEDS: HYDROcodone-ACET 7.5/325MG TAB PO PRN ×3 (10:55→22:14)
[2017-12-10] MEDS: PANTOPRAZOLE 40 MG TAB PO SCH (10:55)
[2017-12-10] MEDS: DOCUSATE SOD 100 MG CAP PO SCH ×2 (10:56→22:03)
[2017-12-10] MEDS: LINEZOLID 600MG TABLET PO SCH ×2 (11:06→22:03)
[2017-12-10 11:50] VITALS: BP 119/72
[2017-12-10] MEDS: SODIUM CHLORIDE 0.9% 500 ML IV SCH (15:03)
[2017-12-10 15:54] VITALS: BP 108/68
[2017-12-10 19:50] VITALS: BP 123/65
[2017-12-11] VITALS (7 sets, daily range): BP systolic 90–138; BP diastolic 47–78
[2017-12-11] MEDS: ZOLPIDEM TARTRATE 5 MG TAB PO PRN (00:19)
[2017-12-11] MEDS: ACETAMINOPHEN 325 MG TAB PO PRN ×2 (00:24→12:18)
[2017-12-11 05:24] LABS: Basophils # (auto) 0.1 uL; Basophils % (auto) 0.8 % (0.0-2.0); Eosinophils # (auto) 0.3 uL; Hematocrit 32.8 % (41.0-53.0); Hemoglobin 10.8 g/dL (13.5-17.5); Lymphocytes # (auto) 1.3 uL; Lymphocytes % (auto) 15.6 % (10.0-50.0); Mean Corpuscular Hemoglobin 31.1 pg (28.0-32.0); Mean Corpuscular Volume 94.4 fL (80.0-100.0); Monocytes # (auto) 0.9 uL; Monocytes % (auto) 11.2 % (0.0-12.0); Neutrophils # (auto) 5.5 uL; Neutrophils % (auto) 68.4 % (37.0-80.0); Nucleated Red Blood Cells % 0.2 %; Platelet Count (auto) 449 10^3/uL (140-450); Red Blood Cells 3.48 10^6/uL (4.5-5.90); Red Cell Distribution Width 15.8 % (11.8-14.3)
[2017-12-11 05:36] LABS: INR 1.11 (0.9-1.15); Prothrombin Time 12.1 sec (9.37-12.3)
[2017-12-11 05:43] LABS: Albumin 2.9 g/dL (3.4-5.0); BUN/Creatinine Ratio 17.9; Calcium 8.3 mg/dL (8.5-10.1); Magnesium 2.6 mg/dL (1.6-2.6)
[2017-12-11 05:46] LABS: Bilirubin, Total 0.7 mg/dL (0.2-1.0); Total Protein 7.6 g/dL (6.4-8.2)
[2017-12-11] MEDS: InsuLIN REG 1unit/0.01ml Soln (100units/ml) SC SCH ×4 (05:52→21:57)
[2017-12-11] MEDS: glipiZIDE 5 MG TAB PO SCH (05:52)
[2017-12-11] MEDS: INSULIN LANTUS (GLARGINE) 1 /0.01ml (100units/ml) SC SCH ×2 (05:53→21:57)
[2017-12-11] MEDS: ACCU-CHEK COMFORT CURVE STRIP VI SCH ×4 (05:53→21:52)
[2017-12-11] MEDS: POTASSIUM CHL 20 Meq TABLET PO PRN (06:16)
[2017-12-11] MEDS: ACETYLCYSTEINE 10 %(100MG/ML) SOL 4ML NEB SCH ×3 (06:29→22:30)
[2017-12-11] MEDS: IPRATROPIUM BROM 0.5 MG/2.5ML INH SOL NEB SCH ×5 (06:29→22:30)
[2017-12-11] MEDS: FERROUS SULFATE 325 MG TAB PO SCH ×2 (08:18→18:14)
[2017-12-11] MEDS: PRO-STAT 64 30ML PO SCH ×2 (08:20→18:00)
[2017-12-11] MEDS: Boost Glucose Control 8 Ounces PO SCH ×3 (08:20→18:00)
[2017-12-11] MEDS: HYDROcodone-ACET 5/325MG TAB PO PRN ×3 (08:20→22:26)
[2017-12-11] MEDS: LEVOFLOXACIN 500 MG TAB PO SCH (10:15)
[2017-12-11] MEDS: CHLORHEXIDINE 0.12% ORAL rinse 473ML MT SCH ×2 (10:15→21:43)
[2017-12-11] MEDS: DOCUSATE SOD 100 MG CAP PO SCH ×2 (10:15→21:43)
[2017-12-11] MEDS: ASPirin-EC 81 mg tab PO SCH (10:16)
[2017-12-11] MEDS: FLORASTOR (S. BOULARDII) 250 MG CAP PO SCH ×2 (10:16→21:41)
[2017-12-11] MEDS: POTASSIUM CHL 20 Meq TABLET PO SCH (10:16)
[2017-12-11] MEDS: FUROSEMIDE 20 MG TAB PO SCH (10:17)
[2017-12-11] MEDS: PANTOPRAZOLE 40 MG TAB PO SCH (10:17)
[2017-12-11] MEDS: MEGESTROL ACET 400MG/10ML ORAL SUSP PO SCH ×2 (10:17→21:41)
[2017-12-11] MEDS: METOPROLOL TARTRATE 25 MG TAB PO SCH ×2 (10:17→21:42)
[2017-12-11] MEDS: NITROGLYCERIN 0.4MG/HR TOPICAL PATCH TD SCH (10:18)
[2017-12-11] MEDS: LINEZOLID 600MG TABLET PO SCH ×2 (10:18→21:41)
[2017-12-11] MEDS ORDERED: ALBUMIN 25% 50 ML IV ONE (12:15)
[2017-12-11] MEDS ORDERED: diphenhdrAMINE HCL 25 MG CAP PO PRN (12:15)
[2017-12-11] MEDS: SODIUM CHLORIDE 0.9% 500 ML IV SCH (15:03)
[2017-12-12] MEDS: ZOLPIDEM TARTRATE 5 MG TAB PO PRN ×2 (00:46→22:43)
[2017-12-12 04:00] VITALS: BP 100/63
[2017-12-12 05:10] LABS: Albumin 3.1 g/dL (3.4-5.0); BUN/Creatinine Ratio 15.8; Calcium 8.4 mg/dL (8.5-10.1); Magnesium 2.5 mg/dL (1.6-2.6); Potassium 4.1 mmol/L (3.5-5.1)
[2017-12-12 05:13] LABS: Bilirubin, Total 0.6 mg/dL (0.2-1.0); Total Protein 7.9 g/dL (6.4-8.2)
[2017-12-12] MEDS: IPRATROPIUM BROM 0.5 MG/2.5ML INH SOL NEB SCH ×5 (05:58→22:00)
[2017-12-12] MEDS: ACETYLCYSTEINE 10 %(100MG/ML) SOL 4ML NEB SCH ×3 (05:58→21:59)
[2017-12-12] MEDS: INSULIN LANTUS (GLARGINE) 1 /0.01ml (100units/ml) SC SCH ×2 (07:00→22:17)
[2017-12-12] MEDS: glipiZIDE 5 MG TAB PO SCH (07:00)
[2017-12-12] MEDS: InsuLIN REG 1unit/0.01ml Soln (100units/ml) SC SCH ×4 (07:00→22:00)
[2017-12-12] MEDS: ACCU-CHEK COMFORT CURVE STRIP VI SCH ×4 (07:09→22:17)
[2017-12-12 07:58] VITALS: BP 120/68
[2017-12-12] MEDS: Boost Glucose Control 8 Ounces PO SCH ×3 (08:00→18:00)
[2017-12-12] MEDS: PRO-STAT 64 30ML PO SCH ×2 (08:00→18:00)
[2017-12-12] MEDS: FERROUS SULFATE 325 MG TAB PO SCH ×2 (08:07→17:46)
[2017-12-12] MEDS ORDERED: METOCLOPRAMIDE HCL 5MG/ml INJ 2ml VIAL IV PRN ×2 (09:00)
[2017-12-12] MEDS ORDERED: PROPRANOLOL HCL 1 MG/ML VIAL IV PRN ×2 (09:00)
[2017-12-12] MEDS ORDERED: ONDANSETRON HCL 4 MG/2 ML VIAL IV PRN ×2 (09:00)
[2017-12-12] MEDS ORDERED: POTASSIUM CHL 20 Meq TABLET PO PRN (09:15)
[2017-12-12] MEDS: HYDROcodone-ACET 5/325MG TAB PO PRN ×2 (09:29→17:46)
[2017-12-12] MEDS: DOCUSATE SOD 100 MG CAP PO SCH ×2 (09:53→20:43)
[2017-12-12] MEDS ORDERED: IPRATROPIUM BROM 0.5 MG/2.5ML INH SOL NEB SCH (10:00)
[2017-12-12] MEDS ORDERED: CHLORHEXIDINE 0.12% ORAL rinse 473ML MT SCH (10:00)
[2017-12-12] MEDS ORDERED: ENOXAPARIN SOD 30 MG/0.3 ML SYRINGE SC SCH (10:00)
[2017-12-12] MEDS: CHLORHEXIDINE 0.12% ORAL rinse 473ML MT SCH ×2 (10:08→21:11)
[2017-12-12] MEDS: FLORASTOR (S. BOULARDII) 250 MG CAP PO SCH ×2 (10:08→20:42)
[2017-12-12] MEDS: ASPirin-EC 81 mg tab PO SCH (10:09)
[2017-12-12] MEDS: LINEZOLID 600MG TABLET PO SCH ×2 (10:09→21:11)
[2017-12-12] MEDS: POTASSIUM CHL 20 Meq TABLET PO SCH (10:09)
[2017-12-12] MEDS: PANTOPRAZOLE 40 MG TAB PO SCH (10:09)
[2017-12-12] MEDS: NITROGLYCERIN 0.4MG/HR TOPICAL PATCH TD SCH (10:11)
[2017-12-12] MEDS: METOPROLOL TARTRATE 25 MG TAB PO SCH ×2 (10:11→20:42)
[2017-12-12] MEDS: MEGESTROL ACET 400MG/10ML ORAL SUSP PO SCH ×2 (10:25→20:42)
[2017-12-12 12:01] VITALS: BP 109/76
[2017-12-12] MEDS ORDERED: TRAM50TA2 PO ×3 (14:51→14:54)
[2017-12-12] MEDS ORDERED: MET25T PO (14:55)
[2017-12-12] MEDS ORDERED: DOCU100C8 PO (14:55)
[2017-12-12] MEDS: SODIUM CHLORIDE 0.9% 500 ML IV SCH (15:03)
[2017-12-12 16:00] VITALS: BP 105/61
[2017-12-12 19:59] VITALS: BP 102/68
[2017-12-12 20:38] VITALS: BP 102/68
[2017-12-12] MEDS: ACETAMINOPHEN 325 MG TAB PO PRN (20:44)
[2017-12-12] MEDS: MORPHINE SULFATE 4 MG/ML SYR/VIAL IV PRN (22:18)
[2017-12-13] VITALS (7 sets, daily range): BP systolic 103–125; BP diastolic 67–83
[2017-12-13] MEDS: IPRATROPIUM BROM 0.5 MG/2.5ML INH SOL NEB SCH ×6 (02:00→22:31)
[2017-12-13 05:38] LABS: Hemoglobin 11.2 g/dL (13.5-17.5); Lymphocytes # (auto) 1.7 uL; Lymphocytes % (auto) 26.6 % (10.0-50.0); Monocytes # (auto) 0.5 uL; Neutrophils # (auto) 4.1 uL; Nucleated Red Blood Cells % 0.2 %; White Blood Cell 6.5 10^3/uL (4.4-10.8)
[2017-12-13 05:53] LABS: Basophils # (auto) 0 uL; Basophils % (auto) 0.7 % (0.0-2.0); Eosinophils # (auto) 0.1 uL; Eosinophils % (auto) 2.2 % (0.0-7.0); Hematocrit 33.1 % (41.0-53.0); Mean Corpuscular Hemoglobin 31.8 pg (28.0-32.0); Mean Corpuscular Hgb Conc. 33.7 g/dL (32.0-36.0); Mean Corpuscular Volume 94.3 fL (80.0-100.0); Monocytes % (auto) 7.5 % (0.0-12.0); Platelet Count (auto) 467 10^3/uL (140-450); Red Blood Cells 3.51 10^6/uL (4.5-5.90); Red Cell Distribution Width 16.4 % (11.8-14.3)
[2017-12-13 05:58] LABS: Potassium 4.2 mmol/L (3.5-5.1)
[2017-12-13 06:04] LABS: Albumin 3.1 g/dL (3.4-5.0); BUN/Creatinine Ratio 17.5; Calcium 8.8 mg/dL (8.5-10.1)
[2017-12-13 06:11] LABS: Bilirubin, Total 0.9 mg/dL (0.2-1.0)
[2017-12-13] MEDS: glipiZIDE 5 MG TAB PO SCH (06:48)
[2017-12-13] MEDS: InsuLIN REG 1unit/0.01ml Soln (100units/ml) SC SCH ×4 (06:49→22:00)
[2017-12-13] MEDS: ACCU-CHEK COMFORT CURVE STRIP VI SCH ×4 (06:49→22:24)
[2017-12-13] MEDS: INSULIN LANTUS (GLARGINE) 1 /0.01ml (100units/ml) SC SCH ×2 (06:49→22:00)
[2017-12-13] MEDS: ACETYLCYSTEINE 10 %(100MG/ML) SOL 4ML NEB SCH ×3 (07:42→22:31)
[2017-12-13] MEDS: PRO-STAT 64 30ML PO SCH ×2 (08:52→18:00)
[2017-12-13] MEDS: Boost Glucose Control 8 Ounces PO SCH ×3 (08:52→18:00)
[2017-12-13] MEDS: MEGESTROL ACET 400MG/10ML ORAL SUSP PO SCH ×2 (09:30→22:24)
[2017-12-13] MEDS: CHLORHEXIDINE 0.12% ORAL rinse 473ML MT SCH ×2 (09:30→22:23)
[2017-12-13] MEDS: FERROUS SULFATE 325 MG TAB PO SCH ×2 (09:31→19:51)
[2017-12-13] MEDS: FLORASTOR (S. BOULARDII) 250 MG CAP PO SCH ×2 (09:31→22:24)
[2017-12-13] MEDS: POTASSIUM CHL 20 Meq TABLET PO SCH (09:31)
[2017-12-13] MEDS: DOCUSATE SOD 100 MG CAP PO SCH ×2 (09:31→22:00)
[2017-12-13] MEDS: ASPirin-EC 81 mg tab PO SCH (09:31)
[2017-12-13] MEDS: PANTOPRAZOLE 40 MG TAB PO SCH (09:31)
[2017-12-13] MEDS: LINEZOLID 600MG TABLET PO SCH ×2 (09:32→22:24)
[2017-12-13] MEDS: NITROGLYCERIN 0.4MG/HR TOPICAL PATCH TD SCH (09:33)
[2017-12-13] MEDS: HYDROcodone-ACET 5/325MG TAB PO PRN (09:42)
[2017-12-13] MEDS ORDERED: LIDOCAINE 2% (LOCAL ANESTH.) PF 5ml SDV ONE (09:56)
[2017-12-13] MEDS: METOPROLOL TARTRATE 25 MG TAB PO SCH ×2 (11:15→22:24)
[2017-12-13] MEDS: ACETAMINOPHEN 325 MG TAB PO PRN (11:26)
[2017-12-13] MEDS ORDERED: LIDOCAINE 2% (LOCAL ANESTH.) PF 5ml SDV IJ ONE (13:30)
[2017-12-13] MEDS: SODIUM CHLORIDE 0.9% 500 ML IV SCH (15:24)
[2017-12-13] MEDS: MORPHINE SULFATE 4 MG/ML SYR/VIAL IV PRN ×3 (16:24→20:46)
[2017-12-13] MEDS: ZOLPIDEM TARTRATE 5 MG TAB PO PRN (22:24)
[2017-12-14 03:52] VITALS: BP 112/58
[2017-12-14 06:16] LABS: Albumin 3.3 g/dL (3.4-5.0); BUN/Creatinine Ratio 17.5; Bilirubin, Total 0.6 mg/dL (0.2-1.0); Calcium 8.8 mg/dL (8.5-10.1); Potassium 4.1 mmol/L (3.5-5.1)
[2017-12-14] MEDS: ACCU-CHEK COMFORT CURVE STRIP VI SCH ×4 (06:53→22:10)
[2017-12-14] MEDS: glipiZIDE 5 MG TAB PO SCH (06:54)
[2017-12-14] MEDS: INSULIN LANTUS (GLARGINE) 1 /0.01ml (100units/ml) SC SCH ×2 (06:54→22:10)
[2017-12-14] MEDS: InsuLIN REG 1unit/0.01ml Soln (100units/ml) SC SCH ×4 (06:54→22:00)
[2017-12-14] MEDS: ACETYLCYSTEINE 10 %(100MG/ML) SOL 4ML NEB SCH ×3 (06:58→22:18)
[2017-12-14] MEDS: IPRATROPIUM BROM 0.5 MG/2.5ML INH SOL NEB SCH ×5 (06:58→22:18)
[2017-12-14] MEDS: PRO-STAT 64 30ML PO SCH ×2 (08:13→18:15)
[2017-12-14] MEDS: FERROUS SULFATE 325 MG TAB PO SCH ×2 (08:13→18:17)
[2017-12-14] MEDS: Boost Glucose Control 8 Ounces PO SCH ×3 (08:13→18:15)
[2017-12-14] MEDS: HYDROcodone-ACET 5/325MG TAB PO PRN ×2 (09:00→18:20)
[2017-12-14] MEDS: METOPROLOL TARTRATE 25 MG TAB PO SCH ×2 (10:00→22:09)
[2017-12-14] MEDS: CHLORHEXIDINE 0.12% ORAL rinse 473ML MT SCH ×2 (10:00→22:09)
[2017-12-14] MEDS: MEGESTROL ACET 400MG/10ML ORAL SUSP PO SCH ×2 (10:17→22:09)
[2017-12-14] MEDS: LINEZOLID 600MG TABLET PO SCH ×2 (10:17→22:09)
[2017-12-14] MEDS: DOCUSATE SOD 100 MG CAP PO SCH ×2 (10:18→22:09)
[2017-12-14] MEDS: NITROGLYCERIN 0.4MG/HR TOPICAL PATCH TD SCH (10:18)
[2017-12-14] MEDS: POTASSIUM CHL 20 Meq TABLET PO SCH (10:18)
[2017-12-14] MEDS: ASPirin-EC 81 mg tab PO SCH (10:18)
[2017-12-14] MEDS: PANTOPRAZOLE 40 MG TAB PO SCH (10:18)
[2017-12-14] MEDS: FLORASTOR (S. BOULARDII) 250 MG CAP PO SCH ×2 (10:18→22:09)
[2017-12-14 12:00] VITALS: BP 127/66
[2017-12-14] MEDS: SODIUM CHLORIDE 0.9% 500 ML IV SCH (15:03)
[2017-12-14 16:00] VITALS: BP 114/73
[2017-12-14 19:55] VITALS: BP 113/69
[2017-12-15] VITALS: BP 114/65
[2017-12-15] MEDS: MORPHINE SULFATE 4 MG/ML SYR/VIAL IV PRN ×2 (00:32→18:13)
[2017-12-15] MEDS: ZOLPIDEM TARTRATE 5 MG TAB PO PRN (00:33)
[2017-12-15 04:00] VITALS: BP 108/65
[2017-12-15 05:16] LABS: Albumin 3.2 g/dL (3.4-5.0); Calcium 8.6 mg/dL (8.5-10.1)
[2017-12-15 05:26] LABS: BUN/Creatinine Ratio 18.6
[2017-12-15 05:29] LABS: Bilirubin, Total 0.6 mg/dL (0.2-1.0)
[2017-12-15] MEDS: InsuLIN REG 1unit/0.01ml Soln (100units/ml) SC SCH ×3 (06:49→17:00)
[2017-12-15] MEDS: INSULIN LANTUS (GLARGINE) 1 /0.01ml (100units/ml) SC SCH (06:49)
[2017-12-15] MEDS: ACCU-CHEK COMFORT CURVE STRIP VI SCH ×3 (07:00→17:00)
[2017-12-15] MEDS: glipiZIDE 5 MG TAB PO SCH (07:00)
[2017-12-15] MEDS: ACETYLCYSTEINE 10 %(100MG/ML) SOL 4ML NEB SCH ×3 (07:02→19:26)
[2017-12-15] MEDS: IPRATROPIUM BROM 0.5 MG/2.5ML INH SOL NEB SCH ×4 (07:02→19:25)
[2017-12-15] MEDS: Boost Glucose Control 8 Ounces PO SCH ×3 (08:00→17:47)
[2017-12-15] MEDS: PRO-STAT 64 30ML PO SCH ×2 (08:00→17:47)
[2017-12-15] MEDS: FERROUS SULFATE 325 MG TAB PO SCH ×2 (08:23→17:50)
[2017-12-15] MEDS: DOCUSATE SOD 100 MG CAP PO SCH (10:02)
[2017-12-15] MEDS: CHLORHEXIDINE 0.12% ORAL rinse 473ML MT SCH (10:02)
[2017-12-15] MEDS: POTASSIUM CHL 20 Meq TABLET PO SCH (10:03)
[2017-12-15] MEDS: FLORASTOR (S. BOULARDII) 250 MG CAP PO SCH (10:03)
[2017-12-15] MEDS: ASPirin-EC 81 mg tab PO SCH (10:03)
[2017-12-15] MEDS: LINEZOLID 600MG TABLET PO SCH (10:04)
[2017-12-15] MEDS: PANTOPRAZOLE 40 MG TAB PO SCH (10:04)
[2017-12-15] MEDS: MEGESTROL ACET 400MG/10ML ORAL SUSP PO SCH (10:04)
[2017-12-15] MEDS: METOPROLOL TARTRATE 25 MG TAB PO SCH (10:04)
[2017-12-15] MEDS: NITROGLYCERIN 0.4MG/HR TOPICAL PATCH TD SCH (10:10)
[2017-12-15 12:00] VITALS: BP 106/72
[2017-12-15] MEDS: HYDROcodone-ACET 5/325MG TAB PO PRN (14:21)
[2017-12-15] MEDS: SODIUM CHLORIDE 0.9% 500 ML IV SCH (15:05)
[2017-12-15 15:58] VITALS: BP 109/73
[2017-12-15 18:21] VITALS: BP 109/73
[2017-12-15 19:58] VITALS: BP 109/73
[2017-12-29] MEDS ORDERED: LIDOCAINE HCL 100 MG/5ML (2%) SYRG INJ IV ONE (18:34)
[2017-12-29] MEDS ORDERED: SODIUM BICARBONATE 8.4 % INJ 50ML VIAL IV ONE (18:34)
[2017-12-29] MEDS ORDERED: PHENYLEPHRINE HCL 10 MG/ML VL IV ONE (18:34)
[2017-12-29] MEDS ORDERED: MAGNESIUM SULF 50% 40 MEQ/10 ML VL IV ONE (18:34)
== END 2017-12-15 20:20 | disposition home or self-care (01) | DRG 233 ==
LOC: CATH 08:42 → TELE-WESTW 08:43 → ICU WEST 11-26 19:10 → DOU IN ICU 12-06 18:35
PROVIDERS: ADMIT Internal Medicine Cardiovascular Disease; ATTEND Specialist
PROC: 4A023N7 Measurement of Cardiac Sampling and Pressure, Left Heart, Percutaneous Approach (ICD-10-PCS; principal; 2017-11-24)
PROC: B2111ZZ Fluoroscopy of Multiple Coronary Arteries using Low Osmolar Contrast (ICD-10-PCS; 2017-11-24)
PROC: B2151ZZ Fluoroscopy of Left Heart using Low Osmolar Contrast (ICD-10-PCS; 2017-11-24)
PROC: 02100Z9 Bypass Coronary Artery, One Artery from Left Internal Mammary, Open Approach (ICD-10-PCS; 2017-11-30)
PROC: 021309W Bypass Coronary Artery, Four or More Arteries from Aorta with Autologous Venous Tissue, Open Approach (ICD-10-PCS; 2017-11-30)
PROC: 06BP4ZZ Excision of Right Saphenous Vein, Percutaneous Endoscopic Approach (ICD-10-PCS; 2017-11-30)
PROC: 5A1221Z Performance of Cardiac Output, Continuous (ICD-10-PCS; 2017-11-30)
PROC: 5A09357 Assistance with Respiratory Ventilation, Less than 24 Consecutive Hours, Continuous Positive Airway Pressure (ICD-10-PCS; 2017-11-30)
PROC: 5A09357 Assistance with Respiratory Ventilation, Less than 24 Consecutive Hours, Continuous Positive Airway Pressure (ICD-10-PCS; 2017-12-01)
PROC: 5A09357 Assistance with Respiratory Ventilation, Less than 24 Consecutive Hours, Continuous Positive Airway Pressure (ICD-10-PCS; 2017-12-02)
PROC: 5A09357 Assistance with Respiratory Ventilation, Less than 24 Consecutive Hours, Continuous Positive Airway Pressure (ICD-10-PCS; 2017-12-03)
PROC: 5A09357 Assistance with Respiratory Ventilation, Less than 24 Consecutive Hours, Continuous Positive Airway Pressure (ICD-10-PCS; 2017-12-07)
PROC: 0W9B3ZZ Drainage of Left Pleural Cavity, Percutaneous Approach (ICD-10-PCS; 2017-12-13)
DX: I21.4 Non-ST elevation (NSTEMI) myocardial infarction (principal); N17.0 Acute kidney failure with tubular necrosis; J90 Pleural effusion, not elsewhere classified; E87.0 Hyperosmolality and hypernatremia; I13.0 Hypertensive heart and chronic kidney disease with heart failure and stage 1 through stage 4 chronic kidney disease, or unspecified chronic kidney disease; I50.30 Unspecified diastolic (congestive) heart failure; T81.31XA Disruption of external operation (surgical) wound, not elsewhere classified, initial encounter; E11.21 Type 2 diabetes mellitus with diabetic nephropathy; I25.10 Atherosclerotic heart disease of native coronary artery without angina pectoris; I25.110 Atherosclerotic heart disease of native coronary artery with unstable angina pectoris; N18.9 Chronic kidney disease, unspecified; D64.9 Anemia, unspecified; D72.829 Elevated white blood cell count, unspecified; E11.22 Type 2 diabetes mellitus with diabetic chronic kidney disease; E66.9 Obesity, unspecified; E78.1 Pure hyperglyceridemia; E78.5 Hyperlipidemia, unspecified; E88.81 Metabolic syndrome and other insulin resistance; G47.10 Hypersomnia, unspecified; I49.3 Ventricular premature depolarization; R80.9 Proteinuria, unspecified; M10.9 Gout, unspecified; B95.7 Other staphylococcus as the cause of diseases classified elsewhere; Z82.49 Family history of ischemic heart disease and other diseases of the circulatory system; Z68.33 Body mass index [BMI] 33.0-33.9, adult; Z83.3 Family history of diabetes mellitus; Y83.8 Other surgical procedures as the cause of abnormal reaction of the patient, or of later complication, without mention of misadventure at the time of the procedure; Y92.89 Other specified places as the place of occurrence of the external cause; Z79.899 Other long term (current) drug therapy
CPT/HCPCS: 10022; 32555; 36415; 36600; 71045; 71250; 74018; 76604; 76705; 76942; 80048; 80053; 80061; 81001; 82043; 82570; 82805; 82962; 83036; 83735; 84100; 84132; 85007; 85025; 85027; 85576; 85610; 85730; 86850; 86900; 86901; 86920; 87040; 87070; 87077; 87081; 87186; 87205; 93005; 93306; 93458; 93886; 93931; 93970; 94002; 94003; 94640; 94660; 94667; 94668; 99152; C1751; C1768; C9113; J0131; J0153; J0330; J0610; J0690; J1642; J1644; J1815; J1885; J2250; J2270; J2440; J2543; J2704; J2720; J3480; J7060; P9047; Q9967